=== PATIENT | female | born 1935 | race Caucasian/White ===

== ENCOUNTER 2016-09-18 16:43 | Inpatient (IN) | payer MEDICARE, MEDICAID ==
[2016-09-18 17:18] LABS: Hematocrit 43 % (35-47); Hemoglobin 13.8 g/dl (12.0-16.0); Mean Corpuscular HGB Conc 32 g/dl (31-36); Mean Corpuscular Hemoglobin 30 pg (27-31); Mean Corpuscular Volume 92 fL (80-97); Mean Platelet Volume 8 um3 (7.4-10.4); Red Blood Count 4.64 10^6/ul (4.0-5.4); Red Cell Distribution Width 16 % (10.5-15); White Blood Count 11.3 10^3/ul (3.5-10.8)
[2016-09-18 17:33] LABS: Albumin 3.6 g/dL (3.2-5.2); BUN/Creatinine Ratio 17.6 (8-20); C Reactive Protein 30.64 mg/L (< 5.00); Calcium 9.6 mg/dL (8.6-10.3); EGFR African American 62.5 (>60); EGFR Non-African American 48.6 (>60); Globulin 3.7 g/dL (2-4); Potassium 4.1 mmol/L (3.5-5.0); Total Bilirubin 0.5 mg/dL (0.2-1.0); Total Protein 7.3 g/dL (6.4-8.9)
[2016-09-18 17:34] LABS: Troponin I 0.04 ng/mL (<0.04)
--- NOTE | 2016-09-18 18:03 | RAD ---
INDICATION: Trauma. COMPARISON: Comparison is made with a prior CT angiogram of the abdominal aorta and lower extremities from June 10, 2016. TECHNIQUE: Contiguous axial sections were obtained beginning above the T12 vertebra and continuing through the L5-S1 disc space. Images were reconstructed in the sagittal and coronal planes. FINDINGS: There is a mild lumbar scoliosis convex toward the right side. The vertebra are otherwise in normal alignment. No fracture is seen. At the L1-L2 level there is posterior endplate spurring associated with a mild broad-based disc bulge. No significant spinal canal narrowing is seen. Neural foramen appear patent on both sides. The L2-L3 level there is posterior endplate spurring associated with a mild broad-based disc bulge which causes moderate spinal canal narrowing. There are moderate hypertrophic changes within the facet joints and mild bilateral neural foraminal narrowing. At the L3-L4 level there is a moderate broad-based disc bulge associated with endplate spurring and moderate hypertrophic changes within the facet joints. This causes moderate to severe spinal canal narrowing and moderate bilateral neural foraminal narrowing. At the L4-L5 level there is posterior endplate spurring associated with a mild broad-based disc bulge and moderate to severe hypertrophic changes within the facet joints which causes moderate spinal canal narrowing. There is mild bilateral neural foraminal narrowing. At the L5-S1 level there is posterior endplate spurring and moderate hypertrophic changes within the facet joints. There is mild spinal canal narrowing and moderate bilateral neural foraminal narrowing. The patient is status post placement of an endovascular aortobiiliac stent graft. The aneurysm sac is partially visualized on this study and measures 7.3 cm in maximum transverse dimension which is unchanged from the prior study. Note is also made of a dilated common bile duct measuring up to 2.5 cm in transverse dimension which appears increased from the prior study. The patient is status post cholecystectomy. IMPRESSION: 1. NO EVIDENCE FOR FRACTURE. 2. DIFFUSE DEGENERATIVE DISC DISEASE AND FACET OSTEOARTHRITIS AT GIVING RISE TO MODERATE SPINAL CANAL NARROWING AT THE L2-L3 LEVEL AND MODERATE TO SEVERE SPINAL CANAL NARROWING AT THE L3-L4 LEVEL, MODERATE SPINAL CANAL NARROWING AT THE L4-L5 LEVEL AND MILD SPINAL CANAL NARROWING AT THE L5-S1 LEVEL. THERE IS NEURAL FORAMINAL NARROWING PRESENT AT MULTIPLE LEVELS DESCRIBED. 3. STATUS POST STATUS POST ENDOVASCULAR AORTOBIILIAC STENT GRAFT. THE ANEURYSM SAC MEASURES 7.3 CM IN TRANSVERSE DIMENSION AND IS UNCHANGED FROM THE PRIOR STUDY. 4. STATUS POST CHOLECYSTECTOMY, DILATATION OF THE COMMON BILE DUCT, INCREASED IN SIZE FROM THE PRIOR STUDY. CONSIDER A RIGHT UPPER QUADRANT ULTRASOUND FOR FURTHER EVALUATION.
--- NOTE | 2016-09-18 18:28 | RAD ---
INDICATION: Right hip injury. COMPARISON: There are no prior studies available for comparison. TECHNIQUE: An AP view of the pelvis and frontal and lateral views of the right hip were obtained. FINDINGS: The bones appear osteopenic and in normal alignment. No fracture is seen. There is moderate osteoarthritic change within both hips. Note is made of an endovascular aorto-biiliac stent graft. IMPRESSION: NO EVIDENCE FOR FRACTURE, IF THE PATIENT'S SYMPTOMS PERSIST, RECOMMEND FOLLOW-UP IMAGING.
[2016-09-18] MEDS ORDERED: oxyCODONE/Acetamin 5/325 MG* TAB PO ONE (18:53)
[2016-09-18] MEDS ORDERED: Albuterol 2.5 MG/3 ML NEB.SOL* (0.083%) INH PRN (22:01)
[2016-09-18] MEDS ORDERED: Ondansetron INJ* 2 MG/ML VIAL IV PRN (22:01)
[2016-09-18] MEDS ORDERED: Senna TAB PO PRN (22:01)
[2016-09-18] MEDS ORDERED: Albuterol/Ipratropium NEB.SOL* Albuterol 2.5 MG/Ipratropium 0.5 MG 3 ML INH PRN (22:01)
[2016-09-18] MEDS ORDERED: Acetaminophen TAB* 325 MG PO PRN (22:01)
[2016-09-18] MEDS ORDERED: Al Hydrox/Mg Hydrox/Simet LIQ* 30 ML UDC PO PRN (22:01)
[2016-09-18] MEDS ORDERED: traMADol TAB* 50 MG PO PRN (22:04)
[2016-09-18] MEDS ORDERED: Gabapentin CAP(*) 300 MG PO PRN (22:05)
[2016-09-18] MEDS ORDERED: Dextrose 50% Syringe 50 ML* 25 GM/50 ML SYRINGE IV PUSH PRN (22:22)
[2016-09-18] MEDS ORDERED: Nicotine Inhaler* 10 MG AMP INH PRN (22:24)
[2016-09-18] MEDS ORDERED: Mouth Piece, Nicotine* 1 EACH CARTRIDGE INH PRN (22:24)
[2016-09-18 22:50] LABS: TSH (Thyroid Stimulating Horm) 2.64 mcIU/mL (0.34-5.60)
[2016-09-18] MEDS: Mometasone/Formoter 200/5 MDI INH SCH (23:06)
--- NOTE | 2016-09-18 23:08 | RAD ---
INDICATION: Trauma, right hip pain. COMPARISON: Comparison is made with a prior CT angiogram of the aorta and lower extremities from June 10, 2016. Correlation is also made with a prior x-ray study of the left hip obtained earlier today. TECHNIQUE: Contiguous axial sections were obtained through the pelvis without intravenous or oral contrast. Images were reconstructed in the coronal and sagittal planes. FINDINGS: The bones are osteopenic. No fracture is seen. There is moderate bilateral osteoarthritic change in the hips. There is an aortobiiliac endovascular stent graft present. The aortic aneurysm sac measures up to 7.0 cm in transverse dimension and is unchanged from the prior study as noted in the CT of the lumbar spine report.. The visualized portion of the small bowel and colon appear nondistended. No free intraperitoneal air or fluid is seen. IMPRESSION: NO EVIDENCE FOR FRACTURE.
--- NOTE | 2016-09-18 23:09 | ED ---
Tony Garcia Erika, scribed for Avinash Burt MD on 09/18/16 at 1827 . Lower Extremity - HPI Summary HPI Summary: Patient is an 81-year-old female presenting to the ED with a CC of right hip pain. Patient reports that she has had right hip pain for 5 days, and it has started to radiate into her lumbar back and down the right leg. Pain is aggravated by ambulation and movement. Today, patient had a mechanical fall, and pain has been worse since then - she currently rates pain an 8/10. Pt states she landed on her right side. She states she called family to help her up off the floor, as she is unable to get up by herself. Patient normally walks with a walker, and states she has fallen 3x this past month. Patient also reports chronic bilateral pedal edema for the past year. Hx osteoarthritis. She is followed by Dr. Partida. - History of Current Complaint Chief Complaint: EDHipPelvisInjury Stated Complaint: LEG SWELLING Time Seen by Provider: 09/18/16 16:50 Hx Obtained From: Patient Onset/Duration: Days - 5 Severity Currently: Moderate Pain Intensity: 8 Pain Scale Used: 0-10 Numeric Timing: Constant Location: Is Discrete @ - R hip Aggravating Factor(s): Movement - Allergies/Home Medications Allergies/Adverse Reactions: Allergies Allergy/AdvReac Type Severity Reaction Status Date / Time Sulfamethoxazole Allergy Rash Verified 09/18/16 16:50 w/Trimethoprim [From Bactrim] Home Medications: Home Medications Ascorbic Acid TAB* [Vitamin C TAB*] 500 mg PO DAILY 09/18/16 [History Confirmed 09/18/16] Cholecalciferol TAB* [Vitamin D TAB*] 1,000 unit PO DAILY 09/18/16 [History Confirmed 09/18/16] Folic Acid TAB* [Folvite TAB*] 1 mg PO DAILY 09/18/16 [History Confirmed ] Gabapentin CAP(*) [Neurontin 300 CAP(*)] 300 mg PO TID PRN 09/18/16 [History Confirmed 09/18/16] Levothyroxine TAB (NF) [Synthroid TAB (NF)] 175 mcg PO DAILY 09/18/16 [History Confirmed 09/18/16] Losartan TAB* [Cozaar TAB*] 50 mg PO DAILY 09/18/16 [History Confirmed 09/18/16] Magnesium Oxide TAB* [MagOx 400 TAB*] 400 mg PO TID 09/18/16 [History Confirmed 09/18/16] Metoprolol Tartrate TAB* [Lopressor TAB*] 50 mg PO BID 09/18/16 [History Confirmed 09/18/16] Multivitamins/Minerals TAB* [Theragran/minerals TAB*] 1 tab PO DAILY 09/18/16 [ History Confirmed 09/18/16] Omeprazole CAP* [Prilosec CAP* 20 MG] 20 mg PO DAILY 09/18/16 [History Confirmed 09/18/16] Pyridoxine TAB* [Vitamin B6 TAB*] 25 mg PO DAILY 09/18/16 [History Confirmed 08/02] Simvastatin TAB(NF) [Zocor(NF)] 20 mg PO DAILY 09/18/16 [History Confirmed 09/18] PMH/Surg Hx/FS Hx/Imm Hx Endocrine/Hematology History: Reports: Hx Diabetes, Hx Thyroid Disease Denies: Hx Blood Transfusions, Hx Bone Marrow Disease Cardiovascular History: Reports: Hx Aneurysm - AAA, Hx Hypercholesterolemia, Hx Hypertension, Other Cardiovascular Problems/Disorders - AAA Denies: Hx Pacemaker/ICD Comment Only: Hx Congestive Heart Failure - + edema le, smoker + wheezes, denies hx CHF, no sob Respiratory History: Reports: Hx Asthma, Hx Chronic Obstructive Pulmonary Disease (COPD), Hx Pneumonia GI History: Reports: Hx Gastroesophageal Reflux Disease, Hx Obstructive Bowel, Other GI Disorders - gangrenous ischemic colitis, colon resection,diarrhea since 11/2012 History: Reports: Hx Renal Disease - abnormal gfr Musculoskeletal History: Reports: Hx Gout, Hx Osteoporosis, Other Musculoskeletal History - arthritis ,brace left leg, club foot,carpal tunnel, neuropathy r/t diabetes Sensory History: Reports: Hx Contacts or Glasses Denies: Hx Cataracts, Hx Eye Injury, Hx Eye Prosthesis, Hx Glaucoma, Hx Legally Blind, Hx Macular Degeneration, Hx Vision Problem, Hx Deafness, Hx Hearing Aid, Hx Hearing Problem, Other Sensory Impairments Opthamlomology History: Reports: Hx Contacts or Glasses Denies: Hx Cataracts, Hx Eye Injury, Hx Eye Prosthesis, Hx Glaucoma, Hx Legally Blind, Hx Macular Degeneration, Hx Vision Problem, Other Sensory Impairments Psychiatric History: Denies: Hx Panic Disorder - Surgical History Surgery Procedure, Year, and Place: hysterectomy, cathy, appendectomy , tonsilectomy,left breast benign,hiatal hernia, bowel resection,club foot left, aaa repair stent-2 ENDURANT-3 ENDURANT II-[place] FOR UP TO 720G/CM. 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 Denies: Hx Clostridium Difficile, Hx Hepatitis, Hx Human Immunodeficiency Virus (HIV), Hx of Known/Suspected MRSA, Hx Shingles, Hx Tuberculosis, Hx Known/ Suspected VRSA, History Other Infectious Disease, Traveled Outside the [place] in Last 30 Days - Family History Known Family History: Positive: Cardiac Disease, Diabetes - Social History Occupation: Retired Alcohol Use: None Hx Substance Use: No Substance Use Type: Reports: None Hx Tobacco Use: No Smoking Status (MU): Never Smoked Tobacco Review of Systems Negative: Fever Musculoskeletal: Other - R hip pain, radiating into back and RLE Positive: Edema - bilateral pedal edema - chronic All Other Systems Reviewed And Are Negative: Yes Physical Exam Triage Information Reviewed: Yes Vital Signs On Initial Exam: Initial Vitals Temp Pulse Resp BP Pulse Ox 98.1 F 63 25 111/53 97 09/18/16 16:45 09/18/16 16:45 09/18/16 16:45 09/18/16 16:45 09/18/16 16:45 Vital Signs Reviewed: Yes Appearance: Positive: Well-Appearing, No Pain Distress, Obese - Morbidly Skin: Positive: Warm, Skin Color Reflects Adequate Perfusion, Dry Head/Face: Positive: Normal Head/Face Inspection Eyes: Positive: Normal ENT: Positive: Normal ENT inspection Neck: Positive: Supple, Nontender Respiratory/Lung Sounds: Positive: Clear to Auscultation, Breath Sounds Present Cardiovascular: Positive: RRR Abdomen Description: Positive: Nontender, Soft Bowel Sounds: Positive: Present Musculoskeletal: Positive: Other - Tender in the right sciatic area Neurological: Positive: Normal Psychiatric: Positive: Affect/Mood Appropriate Diagnostics - Vital Signs Vital Signs Temp Pulse Resp BP Pulse Ox 09/18/16 16:48 98.1 F 65 19 111/53 94 09/18/16 16:45 98.1 F 63 25 111/53 97 - Laboratory Lab Results: Lab Results 09/18/16 09/18/16 Range/Units 16:55 16:55 WBC 11.3 H (3.5-10.8) 10^3/ul RBC 4.64 (4.0-5.4) 10^6/ul Hgb 13.8 (12.0-16.0) g/dl Hct 43 (35-47) % MCV 92 (80-97) fL MCH 30 (27-31) pg MCHC 32 (31-36) g/dl RDW 16 H (10.5-15) % Plt Count 205 (150-450) 10^3/ul MPV 8 (7.4-10.4) um3 Neut % (Auto) 80.3 (38-83) % Lymph % (Auto) 10.0 L (25-47) % Reeves % (Auto) 7.3 (1-9) % Eos % (Auto) 2.0 (0-6) % Baso % (Auto) 0.4 (0-2) % Absolute Neuts (auto) 9.1 H (1.5-7.7) 10^3/ul Absolute Lymphs (auto) 1.1 (1.0-4.8) 10^3/ul Absolute Monos (auto) 0.8 (0-0.8) 10^3/ul Absolute Eos (auto) 0.2 (0-0.6) 10^3/ul Absolute Basos (auto) 0 (0-0.2) 10^3/ul Absolute Nucleated RBC 0 10^3/ul Nucleated RBC % 0 Sodium 139 (133-145) mmol/L Potassium 4.1 (3.5-5.0) mmol/L Chloride 101 (101-111) mmol/L Carbon Dioxide 30 (22-32) mmol/L Anion Gap 8 (2-11) mmol/L BUN 19 (6-24) mg/dL Creatinine 1.08 H (0.51-0.95) mg/dL Est GFR ( Amer) 62.5 (>60) Est GFR (Non-Af Amer) 48.6 (>60) BUN/Creatinine Ratio 17.6 (8-20) Glucose 104 H (70-100) mg/dL Calcium 9.6 (8.6-10.3) mg/dL Total Bilirubin 0.50 (0.2-1.0) mg/dL AST 17 (13-39) U/L ALT 11 (7-52) U/L Alkaline Phosphatase 90 (34-104) U/L Troponin I 0.04 H* (<0.04) ng/mL C-Reactive Protein 30.64 H (< 5.00) mg/L Total Protein 7.3 (6.4-8.9) g/dL Albumin 3.6 (3.2-5.2) g/dL Globulin 3.7 (2-4) g/dL Albumin/Globulin Ratio 1.0 (1-3) TSH 2.64 (0.34-5.60) mcIU/mL Result Diagrams: 09/18/16 16:55 09/18/16 16:55 Lab Statement: Any lab studies that have been ordered have been reviewed, and results considered in the medical decision making process. - Radiology R Hip XR Radiology Interpretation Completed By: Radiologist - IMPRESSION: NO EVIDENCE FOR FRACTURE, IF THE PATIENT'S SYMPTOMS PERSIST, RECOMMEND FOLLOW-UP IMAGING. - CT L Spine CT CT Interpretation Completed By: Radiologist - IMPRESSION: 1. NO EVIDENCE FOR FRACTURE. 2. DIFFUSE DEGENERATIVE DISC DISEASE AND FACET OSTEOARTHRITIS AT GIVING RISE TO MODERATE SPINAL CANAL NARROWING AT THE L2-L3 LEVEL AND MODERATE TO SEVERE SPINAL CANAL NARROWING AT THE L3-L4 LEVEL, MODERATE SPINAL CANAL NARROWING AT THE L4-L5 LEVEL AND MILD SPINAL CANAL NARROWING AT THE L5-S1 LEVEL. THERE IS NEURAL FORAMINAL NARROWING PRESENT AT MULTIPLE LEVELS DESCRIBED. 3. STATUS POST STATUS POST ENDOVASCULAR AORTOBIILIAC STENT GRAFT. THE ANEURYSM SAC MEASURES 7.3 CM IN TRANSVERSE DIMENSION AND IS UNCHANGED FROM THE PRIOR STUDY. 4. STATUS POST CHOLECYSTECTOMY, DILATATION OF THE COMMON BILE DUCT, INCREASED IN SIZE FROM THE PRIOR STUDY. CONSIDER A RIGHT UPPER QUADRANT ULTRASOUND FOR FURTHER EVALUATION. - EKG 16:40 Cardiac Rate: NL - at 63 bpm EKG Rhythm: Sinus Rhythm EKG Interpretation: A lot of baseline artifact Re-Evaluation - Re-Evaluation First Eval Re-Evaluation Time: 21:04 Comment: Patient reports she will not be able to walk. Lower Extremity Course/Dx - Course Course Of Treatment: Marcy Bonilla has fallen several times in the last few days and hurt her back. She has a lot of DDD and is now unable to walk secondary to the pain. I have asked the hospitalists to evaluate her. - Diagnoses Provider Diagnoses: Sciatica of right side - Physician Notifications Discussed Care of Patient With: Dr. Vizcarra (hospitalist) at 21:09 - agrees to admit. Discharge - Discharge Plan Condition: Stable Disposition: ADMITTED TO [facility] documentation as recorded by the Tony feldman Erika accurately reflects the service I personally performed and the decisions made by me, Avinash Burt MD.
--- NOTE | 2016-09-19 00:02 | HP ---
HISTORY AND PHYSICAL: DATE OF ADMISSION: 09/18/16 TIME OF EVALUATION: 2199. PRIMARY CARE PHYSICIAN: Dr. Prince Partida. CHIEF COMPLAINT: Fall with right hip pain. HISTORY OF PRESENT ILLNESS: This is an 81-year-old female with a past medical history of peripheral vascular disease, diabetes and hypertension who presents to the emergency room after having a fall. The patient states for the past year , she has had issues with swollen legs with oozing and various ulcers. She had required antibiotic treatment in the past, but not oral antibiotics. She did have VNS come in seeing her in the past and has been wrapping it with gauze, but the swelling of her lower extremities has made it more difficult for her to ambulate. She states back in August, she had a syncopal episode where she fell and hit her head. She went to [facility], had head CT and was sent home. She normally ambulates with a walker. On this fall, she states she just felt weak, no loss of consciousness, no dizziness, no shortness of breath. No chest pain, but no mechanical fall that she tripped over. The patient states that she has been coughing a little bit more. She normally uses 4 inhalers, but no longer carries one of them in her purse and she only takes them as needed. On arrival here, she states that most of her pain is in her right hip and she has a right middle finger laceration. Otherwise, no nausea, vomiting, diarrhea. No abdominal pain. Remaining review of systems is negative. Also mentioned low back pain, but mostly at right hip. In the emergency room, the patient had labs , imaging and was given Percocet and was referred to the hospitalist service for further evaluation. PAST MEDICAL HISTORY: 1. History of AAA repair in 2011. 2. Asthma. 3. COPD. 4. Tobacco use. 5. Diabetes. 6. Peripheral vascular disease. 7. Hypothyroidism. 8. Hypertension. 9. GERD. 10. History of a bowel obstruction, status post hemicolectomy. 11. Chronic lymphedema. 12. Osteoarthritis. MEDICATIONS: The patient has a list that is not complete with no dosages. Per the staff, the pharmacy was called. However, I recommend calling in the morning as patient's inhalers are not included and herein she also states that she is a diabetic and there are no diabetic agents on here either. 1. Gabapentin 300 mg p.o. t.i.d. as needed. 2. Metoprolol 50 mg b.i.d. 3. Magnesium oxide 400 mg p.o. t.i.d. 4. Simvastatin 20 mg p.o. daily. 5. Folic acid 1 tab daily. 6. Losartan 50 mg a day. 7. Omeprazole 20 mg daily. 8. Multivitamin p.o. daily. 9. Synthroid 175 mcg p.o. daily. 10. Aspirin 81 mg daily. 11. Vitamin D 1000 units daily. 12. Pyridoxine/vitamin B6 25 mg daily. 13. Ascorbic acid/vitamin C 500 mg daily. ALLERGIES: BACTRIM develops a rash. FAMILY HISTORY: As mentioned, her son had a stroke and is in a half-way. SOCIAL HISTORY: The patient lives alone is a double wide trailer. She is still smoking, has a pack per day for the past 40 years. No alcohol use. She has 2 children. Her daughter, Alyson Rios, is her healthcare proxy. Her son is in a half-way from a significant stroke. She ambulates with a walker. She is independent of her ADLs. She is planning on moving in with her daughter, who lives in a trailer park home about 10 miles away. Code status is full code. REVIEW OF SYSTEMS: As mentioned in the HPI. PHYSICAL EXAMINATION GENERAL: No acute distress, resting on her left side. VITAL SIGNS: Temp 98, pulse rate 75, respiratory rate 16, oxygen saturation 96 % on room air, blood pressure 130/56. HEENT: Pupils equal and reactive, anicteric. Head: Normocephalic. Oropharynx : Mucous membranes are moist. No erythema or exudate. NECK: Supple. No lymphadenopathy. RESPIRATORY: Rhonchorous breath sounds with bilateral expiratory wheezing. No increased work of breathing. CARDIAC: Regular rate and rhythm. Soft systolic murmur heard throughout. ABDOMEN: Soft, nontender, nondistended. EXTREMITIES: +2 pretibial edema. No significant areas of ulcerations on my limited physical exam. The patient with right hip pain and limited range of motion of her right hip. NEUROLOGIC: Alert and oriented x3. No focal neurologic deficits. DIAGNOSTIC STUDIES/LABORATORY DATA: White count 11.3, hemoglobin 13.8, hematocrit 43, platelets 205. Sodium 139, potassium 4.1, chloride 101, bicarb 30, BUN 19, creatinine 1.08, glucose 104, troponin 0.04, CRP is 30. Radiographic Data: Lumbar spine CT, no evidence for fracture, diffuse degenerative disease with moderate spinal canal narrowing. Moderate to severe spinal canal narrowing in L3-L4, status post endovascular stent, status post cholecystectomy, dilatation of the common bile duct, increasing in size. Hip and pelvis x-ray, no evidence for fracture. ASSESSMENT AND PLAN: This is an 81-year-old female with a past medical history of peripheral vascular disease, osteoarthritis, and diabetes who presents to the emergency room after having a fall and now complaining of right hip pain. 1. Fall. Assessment: It is unclear of the etiology, does not seem to be a mechanical fall. A month ago, she had a syncopal episode resulting in a significant fall. She states she felt weak. It could be the progression of her chronic lymphedema of her lower extremities with deconditioning and limited ability to ambulate with the swelling of her legs. There is also noted to have moderate to severe spinal stenosis on her lumbar spine CT, which may be contributing to neurologic symptoms. She is still complaining of significant amount of right hip pain and inability to ambulate. Plan will be to admit her to telemetry, rule out any cardiac etiology as she did have a syncopal episode last month including trending her troponin and doing an echocardiogram. We will get PT involved. We will do a CT of her pelvis to rule out any underlying fracture and consider Neurosurgery evaluate this [id number] spinal stenosis contributing to her weakness and fall. 2. Chronic lymphedema. Assessment: The patient has progressively worsening lymphedema. I do not appreciate any secondary infection. Plan: We will place her on Srikanth wraps. She states she takes Lasix, this is not on her list. I will start on Lasix 40 in the morning to see if this will improve her lymphedema. 3. Chronic obstructive pulmonary disease/asthma. Assessment: The patient with significant amount of wheezing on exam. She states she has 4 inhalers that she uses as needed. It is unclear which ones they are. She denies any worsening shortness of breath. We will hold off on getting a chest x-ray right now, resume inhaler regimen and get a med rec to find out what inhaler she was taking if her symptoms do not improve. We will get a baseline chest x-ray as well. If symptoms do not improve, she may need prednisone. 4. Diabetes. Again, med recs needs to be obtained and see what she was taking. We will put her on a lispro sliding scale. 5. Gastroesophageal reflux disease. Continue omeprazole. 6. Hypertension. We will hold her Cozaar as we are giving her Lasix and her blood pressures are soft and continue her on metoprolol. 7. Hyperlipidemia. Hold her simvastatin, is not in formulary for now. 8. Hypothyroidism. We will check a TSH and continue her Synthroid at 175 mcg. 9. Chronic pain and neuropathy. Continue her gabapentin and Tylenol as needed. We will also start her on Percocet and Tramadol as well for her pain from her fall. 10. FEN. We will place her on a heart healthy diet. 11. DVT prophylaxis. She is high risk. We will place her on heparin subcu t.i.d. 12. Code status is full code. PATIENT TIME: Greater than 90 minutes doing the H and P; more than half time spent in direct patient contact. CC: Dr. Prince Partida* [id number]/CPS #: [id number] [facility] HOSPITALJayson
[2016-09-19] MEDS: oxyCODONE/Acetamin 5/325 MG* TAB PO PRN ×3 (00:31→20:30)
[2016-09-19] MEDS: Metoprolol Tartrate TAB* 50 mg PO SCH ×2 (00:34→09:42)
[2016-09-19 01:09] LABS: Urine Bacteria Absent (Absent); Urine Bilirubin Negative (Negative); Urine Glucose Negative (Negative); Urine Nitrite Negative (Negative)
[2016-09-19 05:03] LABS: Hematocrit 37 % (35-47); Hemoglobin 12.1 g/dl (12.0-16.0); Mean Corpuscular HGB Conc 33 g/dl (31-36); Mean Corpuscular Hemoglobin 30 pg (27-31); Mean Corpuscular Volume 92 fL (80-97); Mean Platelet Volume 8 um3 (7.4-10.4); Red Blood Count 4.03 10^6/ul (4.0-5.4); Red Cell Distribution Width 15 % (10.5-15); White Blood Count 9.1 10^3/ul (3.5-10.8)
[2016-09-19 05:21] LABS: BUN/Creatinine Ratio 20.5 (8-20); Calcium 8.9 mg/dL (8.6-10.3); EGFR African American 59.9 (>60); EGFR Non-African American 46.6 (>60); Potassium 4.1 mmol/L (3.5-5.0)
[2016-09-19 05:23] LABS: Troponin I 0.02 ng/mL (<0.04)
[2016-09-19] MEDS: Levothyroxine TAB* 100 MCG TAB PO SCH (05:35)
[2016-09-19] MEDS: Levothyroxine TAB* 75 MCG TAB PO SCH (05:36)
[2016-09-19] MEDS: Heparin VIAL(*) 5000 UNITS/ML VIAL (FIVE THOUSAND) SUBCUT SCH ×3 (05:37→20:31)
--- NOTE | 2016-09-19 07:33 | RAD ---
INDICATION: Shortness of breath and wheezing. COMPARISON: Comparison is made with a prior chest x-ray study from January 04, 2013. TECHNIQUE: A portable view of the chest was obtained. FINDINGS: Cardiac and mediastinal contours appear to be within normal limits. The lungs are underinflated. There is mild prominence of the interstitial markings which are unchanged. No focal infiltrate or pleural effusion is seen. IMPRESSION: NO EVIDENCE FOR ACUTE DISEASE.
[2016-09-19] MEDS: Insulin LISPRO* 1 UNITS UNIT SUBCUT SCH ×3 (07:42→18:12)
[2016-09-19] MEDS: Mometasone/Formoter 200/5 MDI INH SCH ×2 (08:10→21:53)
[2016-09-19] MEDS ORDERED: Furosemide TAB* 40 MG PO SCH (09:00)
[2016-09-19] MEDS: Multivitamins/Minerals TAB PO SCH (09:14)
[2016-09-19] MEDS: Magnesium Oxide TAB* 400 MG PO SCH ×3 (09:14→20:30)
[2016-09-19] MEDS: Omeprazole CAP* 20 MG PO SCH (09:14)
[2016-09-19] MEDS: Aspirin EC Low Dose* 81 MG TAB.EC PO SCH (09:16)
[2016-09-19] MEDS: Ascorbic Acid TAB* 500 MG PO SCH (09:16)
[2016-09-19] MEDS: Cholecalciferol TAB* 1000 UNITS PO SCH (09:16)
[2016-09-19] MEDS: Pyridoxine TAB* 50 MG PO SCH (09:16)
[2016-09-19] MEDS: Folic Acid TAB* 1 MG PO SCH (09:16)
[2016-09-19] MEDS: Docusate CAP* 100 MG PO PRN (09:16)
[2016-09-19] MEDS ORDERED: Morphine INJ* 2 MG/ML 1 ML SYRINGE IV PRN (11:01)
[2016-09-19] MEDS: Morphine INJ* 2 MG/ML 1 ML SYRINGE IV PRN ×3 (11:25→17:28)
--- NOTE | 2016-09-19 14:36 | PN ---
Subjective Date of Service: 09/19/16 Interval History: HOSPITALIST PROGRESS NOTE Patient seen and examined at bedside. She c/o right hip pain 12/26. Denies dizziness or lightheadedness. Family History: Unchanged from Admission Social History: Unchanged from Admission Past Medical History: Unchanged from Admission Objective Active Medications: Acetaminophen (Tylenol Tab*) 650 mg PO Q4H PRN PRN Reason: FEVER/PAIN Al Hydrox/Mg Hydrox/Simethicone (Maalox Plus*) 30 ml PO Q6H PRN PRN Reason: INDIGESTION Albuterol (Ventolin 2.5 Mg/3 Ml Neb.Lina*) 2.5 mg INH [id number] AWAKE PRN PRN Reason: sob/wheezing Albuterol/Ipratropium (Duoneb (Albuterol 2.5 Mg/Ipratropium 0.5 Mg)) 1 neb INH [id number] AWAKE PRN PRN Reason: sob/wheexing Ascorbic Acid (Vitamin C Tab*) 500 mg PO DAILY [facility] Last Admin: 09/19/16 09:16 Dose: 500 mg Aspirin (Aspirin Ec Low Dose*) 81 mg PO DAILY [facility] Last Admin: 09/19/16 09:16 Dose: 81 mg Cholecalciferol (Vitamin D Tab*) 1,000 units PO DAILY [facility] Last Admin: 09/19/16 09:16 Dose: 1,000 units Device (Nicotine Mouth Piece*) 1 each INH .USE WITH NICOTROL PRN PRN Reason: CRAVING Dextrose (D50w Syringe 50 Ml*) 12.5 gm IV PUSH .FOR FS < 60 - SS PRN PRN Reason: FS < 60 Docusate Sodium (Colace Cap*) 100 mg PO BID PRN PRN Reason: CONSTIPATION Last Admin: 09/19/16 09:16 Dose: 100 mg Folic Acid (Folvite Tab*) 1 mg PO DAILY [facility] Last Admin: 09/19/16 09:16 Dose: 1 mg Gabapentin (Neurontin Cap(*)) 300 mg PO TID PRN PRN Reason: PAIN Heparin Sodium (Porcine) (Heparin Vial(*)) 5,000 units SUBCUT Q8HR [facility] Last Admin: 09/19/16 13:10 Dose: 5,000 units Insulin Human Lispro (Humalog*) 0 units SUBCUT AC [facility] PRN Reason: Protocol Last Admin: 09/19/16 13:10 Dose: 3 unit Levothyroxine Sodium (Synthroid Tab*) 100 mcg PO 0600 [facility] Last Admin: 09/19/16 05:35 Dose: 100 mcg Levothyroxine Sodium (Synthroid Tab*) 75 mcg PO 0600 [facility] Last Admin: 09/19/16 05:36 Dose: 75 mcg Magnesium Oxide (Magox 400 Tab*) 400 mg PO TID [facility] Last Admin: 09/19/16 13:11 Dose: 400 mg Metoprolol Tartrate (Lopressor Tab*) 12.5 mg PO Q12HR [facility] Mometasone Furoate/Formoterol Fumar (Dulera 200/5 Mdi*) 2 puff INH BID [facility] Last Admin: 09/19/16 08:10 Dose: 2 puff Morphine Sulfate (Morphine Inj (Syringe)*) 2 mg IV Q2H PRN PRN Reason: PAIN Last Admin: 09/19/16 14:14 Dose: 2 mg Multivitamins/Minerals (Theragran/Minerals Tab*) 1 tab PO DAILY [facility] Last Admin: 09/19/16 09:14 Dose: 1 tab Nicotine (Nicotine Inhaler*) 10 mg INH Q2H PRN PRN Reason: CRAVING Omeprazole (Prilosec Cap*) 20 mg PO DAILY [facility] Last Admin: 09/19/16 09:14 Dose: 20 mg Ondansetron HCl (Zofran Inj*) 4 mg IV Q4H PRN PRN Reason: NAUSEA/VOMITING Oxycodone/Acetaminophen (Percocet 5/325 Tab*) 1 tab PO Q4H PRN PRN Reason: Pain Last Admin: 09/19/16 09:16 Dose: 1 tab Pyridoxine HCl (Vitamin B6 Tab*) 25 mg PO DAILY [facility] Last Admin: 09/19/16 09:16 Dose: 25 mg Senna (Senokot Tab*) 1 tab PO BID PRN PRN Reason: CONSTIPATION Tramadol HCl (Ultram*) 50 mg PO Q6H PRN PRN Reason: PAIN Last Admin: 09/19/16 04:10 Dose: 50 mg Vital Signs 09/19/16 09/19/16 09/19/16 11:25 11:49 12:25 Temperature 97.3 F Pulse Rate 65 Respiratory 18 16 20 Rate Blood Pressure 122/47 (mmHg) O2 Sat by Pulse 94 Oximetry 09/19/16 14:14 Temperature Pulse Rate Respiratory 16 Rate Blood Pressure (mmHg) O2 Sat by Pulse Oximetry Oxygen Devices in Use Now: None Appearance: Elderly obese lady lying in bed in NAD. Eyes: No Scleral Icterus Ears/Nose/Mouth/Throat: Mucous Membranes Moist Neck: Trachea Midline Respiratory: Symmetrical Chest Expansion and Respiratory Effort, Clear to Auscultation Cardiovascular: RRR - Normal S1 and S2 Abdominal: NL Sounds; No Tenderness; No Distention Neurological: Alert and Oriented x 3, NL Muscle Strength and Tone Lines/Tubes/Other Access: Clean, Dry and Intact Peripheral IV Nutrition: Taking PO's Result Diagrams: 09/19/16 04:27 09/19/16 04:27 Assess/Plan/Problems-Billing Assessment: Mrs. Bonilla is an 81yo F with PMH of AAA s/p repair, COPD, tobacco abuse, type 2 DM, PVD, hypothyroidism, HTN, GERD, DJD, who presented to ED after a fall with c/o right hip pain. - Patient Problems (1) Fall Comment: - Fall vs syncope. - Suspect her antihypertensives may be causing hypotension and syncope. Will d/ c Losartan and decrease Metoprolol. - Follow echocardiogram. - No significant arrhythmias on Tele so far. - PT/OT consults. - Fall precautions. (2) Hip pain Comment: - CT pelvis was negative for fracture. - PT as tolerated. - Continue pain management. (3) COPD (chronic obstructive pulmonary disease) Comment: - Appears to be stable at this time. - Continue bronchodilators. (4) Diabetes Comment: - Controlled. - Continue Lispro SS. (5) GERD (gastroesophageal reflux disease) Comment: - Continue Omeprazole. (6) Hypothyroid Comment: - TSH 2.64 - continue Levothyroxine. (7) DVT prophylaxis Comment: - SQ heparin. (8) Full code status
--- NOTE | 2016-09-19 18:02 | ECHO ---
Patient: RENATA ALBERT [facility] Rec#: [id number] : 1935 Date: 09/19/2016 Age: 81y Height: 172.7 cm / 68.0 in Weight: 104.8 kg / 231.0 lbs Sex: F BSA: 2.17 Room#: 437 Admit Date#: 09/18/2016 Type: Inpatient Referring: Amy Vizcarra Reading: Lex Moore MD Order Analyst: Meghna Mcnally RN RDCS CC: Prince Partida MD Transthoracic Echocardiogram Indication: Syncope BP: 102/35 HR: 70 Rhythm: NSR Findings History: HTN, DM, PVD, AAA repair, hypothyroidism, COPD, smoker, obesity, lower extremity edema Technical Comments: The study quality is fair. The study is technically limited due to patient body habitus. The study is technically limited due to the patient's history of COPD. The study is technically limited due to the patient's smoking history. Completed at 1025. Left Ventricle: The left ventricular chamber size is normal. There is increased basal septal hypertrophy noted without evidence of an increased gradient across the left ventricular outflow tract. c/w sigmoid septum. Global left ventricular wall motion and contractility are within normal limits. There is normal left ventricular systolic function. The estimated ejection fraction is 60-65%. There is an E to A reversal in the mitral valve flow pattern suggestive of diastolic dysfunction. Left Atrium: The left atrial chamber size is normal. Right Ventricle: The right ventricle wall thickness is mildly increased.8 mm. The right ventricle is slightly dilated. The right ventricular global systolic function is mildly reduced. Right Atrium: The right atrial cavity size is normal. Aortic Valve: The aortic valve is trileaflet. The aortic valve leaflets are mildly thickened. There is aortic annular calcification. There is no evidence of aortic regurgitation. There is no evidence of aortic stenosis. Mitral Valve: The mitral valve leaflets are mildly thickened. There is mild mitral regurgitation. There is no evidence of mitral stenosis. Tricuspid Valve: The tricuspid valve leaflets are normal. There is moderate tricuspid regurgitation. There is evidence of moderate pulmonary hypertension. Pulmonic Valve: The pulmonic valve appears normal. There is a trace pulmonic regurgitation. There is no pulmonic stenosis. Pericardium: There is no significant pericardial effusion. A pericardial fat pad is visualized. Aorta: There is mild dilatation of the ascending aorta. The aortic arch is not well visualized. The aortic root is normal in size. Pulmonary Artery: The main pulmonary artery appears normal. Venous: The venous system is not well visualized. The inferior vena cava is not visualized. Summary: There was not any prior study for comparison. Conclusions The study is technically limited due to the patient's history of COPD. The estimated ejection fraction is 60-65%. There is an E to A reversal in the mitral valve flow pattern suggestive of diastolic dysfunction. The right ventricle wall thickness is mildly increased. The right ventricle is slightly dilated. The right ventricular global systolic function is mildly reduced. The aortic valve leaflets are mildly thickened. There is mild mitral regurgitation. There is moderate tricuspid regurgitation. There is evidence of moderate pulmonary hypertension. Measurements Name Value Normal Range RVIDd (AP) 2D 2.8 cm (0.9 - 2.6) RVDdMajor (2D) 3.5 cm (2.2 - 4.4) RVAW (2D) 0.7 cm (0.2 - 0.5) RAd ISD 4CH 4.8 cm (3.4 - 4.9) RA (A4C)W 3.4 cm (2.9 - 4.6) IVSd (2D) 1.6 cm (0.6 - 1) LVPWd (2D) 0.9 cm (0.6 - 1) LVIDd (2D) 4.5 cm (3.6 - 5.4) LVIDs (2D) 2.9 cm - LV FS (2D) 35 % (25 - 45) Aortic Annulus 2 cm (1.4 - 2.6) Ao root diameter (2D) 2.8 cm (2.1 - 3.5) Ascending Ao 3.5 cm (2.1 - 3.4) LA dimension (AP) 2D 3.4 cm (2.3 - 3.8) LAd ISD 4CH 4.9 cm (2.9 - 5.3) LA ISD 4CH W 4.2 cm (2.5 - 4.5) Name Value Normal Range LA ESV SP 4CH (A/L) 54 ml - LA ESV SP 2CH (A/L) 47 ml - LA ESV BP (A/L) 51 ml - LA ESV BP (A/L) index 24 ml/m2 - LA ESV SP 4CH (MOD) 50 ml - LA ESV SP 2CH (MOD) 44 ml - Name Value Normal Range MV E-wave Vmax 0.74 m/sec - MV deceleration time 247 msec - MV A-wave Vmax 1.1 m/sec - MV E:A ratio 0.7 ratio - LV septal e' Vmax 0.06 m/sec - LV lateral e' Vmax 0.07 m/sec - LV E:e' septal ratio 12.3 ratio - LV E:e' lateral ratio 10.6 ratio - Name Value Normal Range AV Vmax 1.6 m/sec - AV VTI 35.1 cm - AV peak gradient 10 mmHg - AV mean gradient 6 mmHg - LVOT diameter 2 cm - LVOT Vmax 1.2 m/sec - LVOT VTI 25 cm - LVOT peak gradient 6 mmHg - LVOT mean gradient 3 mmHg - CESILIA (continuity Vmax) 2.4 cm2 - CESILIA (continuity VTI) 2.2 cm2 - Name Value Normal Range TR Vmax 3.6 m/sec - TR peak gradient 52 mmHg - RAP 8 mmHg - RVSP 60 mmHg - Name Value Normal Range PV Vmax 0.97 m/sec -
[2016-09-19] MEDS: Metoprolol Tartrate TAB* 25 MG PO SCH (20:31)
[2016-09-20] MEDS: Morphine INJ* 2 MG/ML 1 ML SYRINGE IV PRN ×4 (05:07→20:51)
[2016-09-20] MEDS: Levothyroxine TAB* 75 MCG TAB PO SCH (05:11)
[2016-09-20] MEDS: Heparin VIAL(*) 5000 UNITS/ML VIAL (FIVE THOUSAND) SUBCUT SCH ×3 (05:11→22:22)
[2016-09-20] MEDS: Levothyroxine TAB* 100 MCG TAB PO SCH (05:11)
[2016-09-20] MEDS: Mometasone/Formoter 200/5 MDI INH SCH ×2 (08:55→19:35)
[2016-09-20] MEDS: Magnesium Oxide TAB* 400 MG PO SCH ×3 (09:03→22:20)
[2016-09-20] MEDS: Pyridoxine TAB* 50 MG PO SCH (09:03)
[2016-09-20] MEDS: Omeprazole CAP* 20 MG PO SCH (09:03)
[2016-09-20] MEDS: Cholecalciferol TAB* 1000 UNITS PO SCH (09:03)
[2016-09-20] MEDS: Metoprolol Tartrate TAB* 25 MG PO SCH ×2 (09:03→22:20)
[2016-09-20] MEDS: Folic Acid TAB* 1 MG PO SCH (09:04)
[2016-09-20] MEDS: Aspirin EC Low Dose* 81 MG TAB.EC PO SCH (09:04)
[2016-09-20] MEDS: Ascorbic Acid TAB* 500 MG PO SCH (09:04)
[2016-09-20] MEDS: Insulin LISPRO* 1 UNITS UNIT SUBCUT SCH ×3 (09:53→17:38)
[2016-09-20] MEDS: Multivitamins/Minerals TAB PO SCH (09:53)
[2016-09-20] MEDS ORDERED: HYDROmorphone* 1 MG/ML 1 ML SYR IV SLOW PU ONE ×2 (09:58→14:43)
[2016-09-20] MEDS ORDERED: oxyCODONE/Acetamin 5/325 MG* TAB PO PRN ×2 (11:09→11:12)
[2016-09-20] MEDS: Morphine TAB Extended Release (*) 15 MG TAB.ER PO SCH (12:03)
[2016-09-20] MEDS ORDERED: HYDROmorphone* 1 MG/ML 1 ML SYR ONE (14:46)
--- NOTE | 2016-09-20 15:52 | RAD ---
INDICATION: Trauma, right hip pain. COMPARISON: Comparison is made with a prior CT of the pelvis from September 18, 2016. TECHNIQUE: Axial coronal T1 and T2-weighted images of the pelvis were obtained. The exam is slightly limited due to motion artifact. FINDINGS: There is a small nonspecific area of increased signal intensity in the superior left acetabulum. The bones are otherwise normal in signal intensity without evidence for fracture. There is moderate bilateral osteoarthritic change in the hips. There is abnormal increased signal intensity in the right iliopsoas muscle beginning at the level of the top of the iliac crest and extending to the distal muscular tendinous junction. There is a complete tear of the distal right iliopsoas tendon which appears avulsed and retracted away from the lesser trochanter. There is also mild edema in the lateral aspect of the left gluteus blake muscle. There is edema extending into the proximal portion of the right thigh. No free intraperitoneal fluid is seen. IMPRESSION: 1. NO EVIDENCE FOR FRACTURE. 2. HIGH-GRADE TEAR OF THE RIGHT ILIOPSOAS MUSCLE AND COMPLETE TEAR OF THE DISTAL RIGHT ILIOPSOAS TENDON WHICH IS RETRACTED FROM THE LESSER TUBEROSITY.
--- NOTE | 2016-09-20 15:55 | PN ---
Subjective Date of Service: 09/20/16 Interval History: HOSPITALIST PROGRESS NOTE Patient seen and examined at bedside. She c/o severe right hip pain radiating to her right knee. Was unable to get up from bed today. Family History: Unchanged from Admission Social History: Unchanged from Admission Past Medical History: Unchanged from Admission Objective Active Medications: Acetaminophen (Tylenol Tab*) 650 mg PO Q4H PRN PRN Reason: FEVER/PAIN Al Hydrox/Mg Hydrox/Simethicone (Maalox Plus*) 30 ml PO Q6H PRN PRN Reason: INDIGESTION Albuterol (Ventolin 2.5 Mg/3 Ml Neb.Lina*) 2.5 mg INH [id number] AWAKE PRN PRN Reason: sob/wheezing Albuterol/Ipratropium (Duoneb (Albuterol 2.5 Mg/Ipratropium 0.5 Mg)) 1 neb INH [id number] AWAKE PRN PRN Reason: sob/wheexing Ascorbic Acid (Vitamin C Tab*) 500 mg PO DAILY [facility] Last Admin: 09/20/16 09:04 Dose: 500 mg Aspirin (Aspirin Ec Low Dose*) 81 mg PO DAILY [facility] Last Admin: 09/20/16 09:04 Dose: 81 mg Cholecalciferol (Vitamin D Tab*) 1,000 units PO DAILY [facility] Last Admin: 09/20/16 09:03 Dose: 1,000 units Device (Nicotine Mouth Piece*) 1 each INH .USE WITH NICOTROL PRN PRN Reason: CRAVING Dextrose (D50w Syringe 50 Ml*) 12.5 gm IV PUSH .FOR FS < 60 - SS PRN PRN Reason: FS < 60 Docusate Sodium (Colace Cap*) 100 mg PO BID PRN PRN Reason: CONSTIPATION Last Admin: 09/19/16 09:16 Dose: 100 mg Folic Acid (Folvite Tab*) 1 mg PO DAILY [facility] Last Admin: 09/20/16 09:04 Dose: 1 mg Gabapentin (Neurontin Cap(*)) 300 mg PO TID PRN PRN Reason: PAIN Heparin Sodium (Porcine) (Heparin Vial(*)) 5,000 units SUBCUT Q8HR [facility] Last Admin: 09/20/16 13:18 Dose: 5,000 units Insulin Human Lispro (Humalog*) 0 units SUBCUT AC [facility] PRN Reason: Protocol Last Admin: 09/20/16 13:18 Dose: 1 unit Levothyroxine Sodium (Synthroid Tab*) 100 mcg PO 0600 [facility] Last Admin: 09/20/16 05:11 Dose: 100 mcg Levothyroxine Sodium (Synthroid Tab*) 75 mcg PO 0600 [facility] Last Admin: 09/20/16 05:11 Dose: 75 mcg Magnesium Oxide (Magox 400 Tab*) 400 mg PO TID [facility] Last Admin: 09/20/16 13:19 Dose: 400 mg Metoprolol Tartrate (Lopressor Tab*) 12.5 mg PO Q12HR [facility] Last Admin: 09/20/16 09:03 Dose: 12.5 mg Mometasone Furoate/Formoterol Fumar (Dulera 200/5 Mdi*) 2 puff INH BID [facility] Last Admin: 09/20/16 08:55 Dose: 2 puff Morphine Sulfate (Morphine Inj (Syringe)*) 2 mg IV Q2H PRN PRN Reason: PAIN Last Admin: 09/20/16 14:00 Dose: 2 mg Morphine Sulfate (Ms Contin(*)) 15 mg PO Q12H [facility] Last Admin: 09/20/16 12:03 Dose: 15 mg Multivitamins/Minerals (Theragran/Minerals Tab*) 1 tab PO DAILY [facility] Last Admin: 09/20/16 09:53 Dose: 1 tab Nicotine (Nicotine Inhaler*) 10 mg INH Q2H PRN PRN Reason: CRAVING Omeprazole (Prilosec Cap*) 20 mg PO DAILY [facility] Last Admin: 09/20/16 09:03 Dose: 20 mg Ondansetron HCl (Zofran Inj*) 4 mg IV Q4H PRN PRN Reason: NAUSEA/VOMITING Oxycodone/Acetaminophen (Percocet 5/325 Tab*) 2 tab PO Q4H PRN PRN Reason: Pain 6-10 Oxycodone/Acetaminophen (Percocet 5/325 Tab*) 1 tab PO Q4H PRN PRN Reason: Pain 1-5 Pyridoxine HCl (Vitamin B6 Tab*) 25 mg PO DAILY [facility] Last Admin: 09/20/16 09:03 Dose: 25 mg Senna (Senokot Tab*) 1 tab PO BID PRN PRN Reason: CONSTIPATION Vital Signs 09/20/16 09/20/16 09/20/16 10:16 11:39 12:03 Temperature 98.2 F Pulse Rate 79 Respiratory 25 16 18 Rate Blood Pressure 126/60 (mmHg) O2 Sat by Pulse 96 Oximetry Oxygen Devices in Use Now: None Appearance: Elderly obese lady lying in bed in NAD. Eyes: No Scleral Icterus Ears/Nose/Mouth/Throat: Mucous Membranes Moist Neck: Trachea Midline Respiratory: Symmetrical Chest Expansion and Respiratory Effort, Clear to Auscultation Cardiovascular: RRR - Normal S1 and S2 Abdominal: NL Sounds; No Tenderness; No Distention Neurological: Alert and Oriented x 3, NL Muscle Strength and Tone Lines/Tubes/Other Access: Clean, Dry and Intact Peripheral IV Nutrition: Taking PO's Result Diagrams: 09/19/16 04:27 09/19/16 04:27 Assess/Plan/Problems-Billing Assessment: Mrs. Bonilla is an 81yo F with PMH of AAA s/p repair, COPD, tobacco abuse, type 2 DM, PVD, hypothyroidism, HTN, GERD, DJD, who presented to ED after a fall with c/o right hip pain. - Patient Problems (1) Fall Comment: - Fall vs syncope. - Suspect her antihypertensives may be causing hypotension and syncope. Will d/ c Losartan and decrease Metoprolol. - Echocardiogram reviewed. - No significant arrhythmias on Tele - will d/c. - PT/OT consults. - Fall precautions. (2) Hip pain Comment: - CT pelvis was negative for fracture. - Pain is still severe. - PT as tolerated. - Ortho consult requested - recommended MRI pelvis to r/o fracture. - Will add MS contin, continue oxycodone and PRN Morphine. (3) COPD (chronic obstructive pulmonary disease) Comment: - Appears to be stable at this time. - Continue bronchodilators. (4) Diabetes Comment: - Controlled. - Continue Lispro SS. (5) GERD (gastroesophageal reflux disease) Comment: - Continue Omeprazole. (6) Hypothyroid Comment: - TSH 2.64 - continue Levothyroxine. (7) DVT prophylaxis Comment: - SQ heparin. (8) Full code status
--- NOTE | 2016-09-20 21:47 | CONS ---
ORTHOPEDIC CONSULT: DATE OF CONSULT: 09/20/16 CHIEF COMPLAINT: Right hip. HISTORY OF PRESENT ILLNESS: Ms. Bonilla is an 81-year-old female who was admitted on the evening of September 18 after having a fall at home. She has had troubles going over the past year with swelling of both of her legs and has had initially some stockings which had seemed to help, but more recently, the visiting nurse service had set her up with compression tubigauze sleeves. She still though has been having troubles with that swelling and it has been more difficult for her to walk. She had a fall on the day of admission and when we were talking about the hip, she reports that for about 5 days prior to the fall , her right hip had been giving her some pain and troubles. It was towards the front. With the fall, there was concern for a hip fracture, so she initially had x-rays and then a CAT scan and then this morning, I was consulted and the hospitalist service was considering an MRI and I did agree with that plan, as her x-rays and CAT scan did look relatively good. MRI has shown a tear of her iliopsoas tendon. PAST MEDICAL HISTORY: Asthma/COPD, diabetes, peripheral vascular disease, hypothyroidism, hypertension, GERD, chronic lymphedema. PAST SURGICAL HISTORY: She has had various surgeries including an abdominal aortic aneurysm repair in [place] after being diagnosed here in 2011, status post hemicolectomy, and cholecystectomy. PHYSICAL EXAM: General: Mature female, propped up on the bed, protecting her right hip. Bilateral lower extremities: She has impressive edema of both of the legs including the feet and it could be seen how she had troubles walking. She has very specific pitting edema and while the Srikanth wrap is bunched up some, she is still swollen above the Srikanth wraps to a very significant degree. Motion of the right hip does create her pain. DIAGNOSTIC STUDIES: X-rays, CAT scan, and MRI done are available for review. She had some [id number] arthritic changes of the right hip, but I agree with the radiologist that on the MRI that there is a tear to the iliopsoas tendon. ASSESSMENT: Right hip iliopsoas tendon tear. PLAN: I discussed with Ms. Bonilla that this is not something that we routinely fix. This is also something which is not common at all. It does, however, occur in older women and can occur spontaneously. Considering her debilitated nature, lymphedema and issues with wound healing, I would not be enthusiastic to push for a repair of her iliopsoas. With conservative treatment , she can still has a good outcome where she can walk, flex the hip, and do things, but currently, it is her lymphedema which was giving her issues prior to this injury. Considering the inflammation seen on MRI, I would like to try a low-dose antiinflammatory such as Celebrex 100 mg daily, but considering her peripheral edema and hypertension, I am unsure if something like that would be possible and leave that to the hospitalist service to decide. Getting some simple mechanical improvement, such as using one of the Jobst stockings, is something which should be easy to do and should help to squeeze some of that swelling, so that hopefully the feet will not bother as much and she can be more mobile. Continuing to coordinate with Physical Therapy so that she is up and about also is something which should still help and prevent further debilitation. [id number]/CPS #: [id number] MTDD
[2016-09-21] MEDS: Morphine TAB Extended Release (*) 15 MG TAB.ER PO SCH (00:22)
[2016-09-21] MEDS: Morphine INJ* 2 MG/ML 1 ML SYRINGE IV PRN ×5 (02:47→18:50)
[2016-09-21] MEDS: Levothyroxine TAB* 100 MCG TAB PO SCH (05:40)
[2016-09-21] MEDS: Levothyroxine TAB* 75 MCG TAB PO SCH (05:40)
[2016-09-21] MEDS: Heparin VIAL(*) 5000 UNITS/ML VIAL (FIVE THOUSAND) SUBCUT SCH ×3 (05:40→21:28)
[2016-09-21] MEDS: Docusate CAP* 100 MG PO PRN (05:46)
[2016-09-21] MEDS: Mometasone/Formoter 200/5 MDI INH SCH ×2 (07:49→20:24)
[2016-09-21] MEDS: Folic Acid TAB* 1 MG PO SCH (08:13)
[2016-09-21] MEDS: Cholecalciferol TAB* 1000 UNITS PO SCH (08:13)
[2016-09-21] MEDS: Omeprazole CAP* 20 MG PO SCH (08:13)
[2016-09-21] MEDS: Multivitamins/Minerals TAB PO SCH (08:13)
[2016-09-21] MEDS: Magnesium Oxide TAB* 400 MG PO SCH ×3 (08:13→21:28)
[2016-09-21] MEDS: Aspirin EC Low Dose* 81 MG TAB.EC PO SCH (08:13)
[2016-09-21] MEDS: Ascorbic Acid TAB* 500 MG PO SCH (08:14)
[2016-09-21] MEDS: Metoprolol Tartrate TAB* 25 MG PO SCH ×2 (08:14→21:28)
[2016-09-21] MEDS: Insulin LISPRO* 1 UNITS UNIT SUBCUT SCH ×3 (09:35→18:50)
[2016-09-21] MEDS: Polyethylene Glycol 3350* 17 GM PACKET PO SCH (09:35)
[2016-09-21] MEDS ORDERED: Morphine TAB Extended Release (*) 15 MG TAB.ER PO ONE (10:57)
[2016-09-21] MEDS: Furosemide TAB* 40 MG PO SCH (11:19)
[2016-09-21] MEDS: Pyridoxine TAB* 50 MG PO SCH (11:19)
--- NOTE | 2016-09-21 14:56 | PN ---
Subjective Date of Service: 09/21/16 Interval History: HOSPITALIST PROGRESS NOTE Patient seen and examined at bedside. Right hip pain is less intense than yesterday, but still severe. Did not try to get out of bed and scared to do so. Family History: Unchanged from Admission Social History: Unchanged from Admission Past Medical History: Unchanged from Admission Objective Active Medications: Acetaminophen (Tylenol Tab*) 650 mg PO Q4H PRN PRN Reason: FEVER/PAIN Al Hydrox/Mg Hydrox/Simethicone (Maalox Plus*) 30 ml PO Q6H PRN PRN Reason: INDIGESTION Albuterol (Ventolin 2.5 Mg/3 Ml Neb.Lina*) 2.5 mg INH [id number] AWAKE PRN PRN Reason: sob/wheezing Albuterol/Ipratropium (Duoneb (Albuterol 2.5 Mg/Ipratropium 0.5 Mg)) 1 neb INH [id number] AWAKE PRN PRN Reason: sob/wheexing Ascorbic Acid (Vitamin C Tab*) 500 mg PO DAILY [facility] Last Admin: 09/21/16 08:14 Dose: 500 mg Aspirin (Aspirin Ec Low Dose*) 81 mg PO DAILY [facility] Last Admin: 09/21/16 08:13 Dose: 81 mg Cholecalciferol (Vitamin D Tab*) 1,000 units PO DAILY [facility] Last Admin: 09/21/16 08:13 Dose: 1,000 units Device (Nicotine Mouth Piece*) 1 each INH .USE WITH NICOTROL PRN PRN Reason: CRAVING Dextrose (D50w Syringe 50 Ml*) 12.5 gm IV PUSH .FOR FS < 60 - SS PRN PRN Reason: FS < 60 Docusate Sodium (Colace Cap*) 100 mg PO BID PRN PRN Reason: CONSTIPATION Last Admin: 09/21/16 05:46 Dose: 100 mg Folic Acid (Folvite Tab*) 1 mg PO DAILY [facility] Last Admin: 09/21/16 08:13 Dose: 1 mg Furosemide (Lasix Tab*) 40 mg PO DAILY [facility] Last Admin: 09/21/16 11:19 Dose: 40 mg Gabapentin (Neurontin Cap(*)) 300 mg PO TID PRN PRN Reason: PAIN Heparin Sodium (Porcine) (Heparin Vial(*)) 5,000 units SUBCUT Q8HR [facility] Last Admin: 09/21/16 13:34 Dose: 5,000 units Insulin Human Lispro (Humalog*) 0 units SUBCUT AC [facility] PRN Reason: Protocol Last Admin: 09/21/16 13:31 Dose: Not Given Levothyroxine Sodium (Synthroid Tab*) 100 mcg PO 0600 [facility] Last Admin: 09/21/16 05:40 Dose: 100 mcg Levothyroxine Sodium (Synthroid Tab*) 75 mcg PO 0600 [facility] Last Admin: 09/21/16 05:40 Dose: 75 mcg Magnesium Oxide (Magox 400 Tab*) 400 mg PO TID [facility] Last Admin: 09/21/16 13:34 Dose: 400 mg Metoprolol Tartrate (Lopressor Tab*) 12.5 mg PO Q12HR [facility] Last Admin: 09/21/16 08:14 Dose: 12.5 mg Mometasone Furoate/Formoterol Fumar (Dulera 200/5 Mdi*) 2 puff INH BID [facility] Last Admin: 09/21/16 07:49 Dose: 2 puff Morphine Sulfate (Morphine Inj (Syringe)*) 2 mg IV Q2H PRN PRN Reason: PAIN Last Admin: 09/21/16 14:47 Dose: 2 mg Morphine Sulfate (Ms Contin(*)) 30 mg PO Q12H [facility] Multivitamins/Minerals (Theragran/Minerals Tab*) 1 tab PO DAILY [facility] Last Admin: 09/21/16 08:13 Dose: 1 tab Nicotine (Nicotine Inhaler*) 10 mg INH Q2H PRN PRN Reason: CRAVING Omeprazole (Prilosec Cap*) 20 mg PO DAILY [facility] Last Admin: 09/21/16 08:13 Dose: 20 mg Ondansetron HCl (Zofran Inj*) 4 mg IV Q4H PRN PRN Reason: NAUSEA/VOMITING Oxycodone/Acetaminophen (Percocet 5/325 Tab*) 2 tab PO Q4H PRN PRN Reason: Pain 6-10 Oxycodone/Acetaminophen (Percocet 5/325 Tab*) 1 tab PO Q4H PRN PRN Reason: Pain 1-5 Polyethylene Glycol/Electrolytes (Miralax*) 17 gm PO DAILY [facility] Last Admin: 09/21/16 09:35 Dose: 17 gm Pyridoxine HCl (Vitamin B6 Tab*) 25 mg PO DAILY [facility] Last Admin: 09/21/16 11:19 Dose: 25 mg Senna (Senokot Tab*) 1 tab PO BID PRN PRN Reason: CONSTIPATION Last Admin: 09/21/16 05:45 Dose: 1 tab Vital Signs 09/21/16 09/21/16 09/21/16 06:08 07:30 07:51 Temperature 98.5 F Pulse Rate 73 70 Respiratory 16 16 15 Rate Blood Pressure 139/53 (mmHg) O2 Sat by Pulse 92 93 Oximetry Oxygen Devices in Use Now: None Appearance: Elderly obese lady lying in bed in NAD. Eyes: No Scleral Icterus Ears/Nose/Mouth/Throat: Mucous Membranes Moist Neck: Trachea Midline Respiratory: Symmetrical Chest Expansion and Respiratory Effort, Clear to Auscultation Cardiovascular: NL Sounds; No Murmurs; No JVD, RRR Abdominal: NL Sounds; No Tenderness; No Distention Extremities: - - Bilateral LE are KHANH wrapped Neurological: Alert and Oriented x 3, NL Muscle Strength and Tone Lines/Tubes/Other Access: Clean, Dry and Intact Peripheral IV Nutrition: Taking PO's Result Diagrams: 09/19/16 04:27 09/19/16 04:27 Assess/Plan/Problems-Billing Assessment: Mrs. Bonilla is an 81yo F with PMH of AAA s/p repair, COPD, tobacco abuse, type 2 DM, PVD, hypothyroidism, HTN, GERD, DJD, who presented to ED after a fall with c/o right hip pain. - Patient Problems (1) Fall Comment: - Fall vs syncope. - Suspect her antihypertensives may be causing hypotension and syncope. - Continue low dose Metoprolol. - Echocardiogram reviewed. - PT/OT consults. - Fall precautions. (2) Hip pain Comment: - CT pelvis was negative for fracture. - Pain is still severe. - Ortho consult aprreciated - MRI pelvis was negative for fractures, but showed high grade tear of right ilio-psoas muscle and complete tear of the distal right ilio-psoas tendon. - Will increase MS contin, continue oxycodone and PRN Morphine. (3) COPD (chronic obstructive pulmonary disease) Comment: - Appears to be stable at this time. - Continue bronchodilators. (4) Diabetes Comment: - Controlled. - Continue Lispro SS. (5) GERD (gastroesophageal reflux disease) Comment: - Continue Omeprazole. (6) Hypothyroid Comment: - TSH 2.64 - continue Levothyroxine. (7) DVT prophylaxis Comment: - SQ heparin. (8) Full code status
[2016-09-21] MEDS ORDERED: Furosemide IV* 10 MG/ML 2 ML VIAL (20 MG) IV ONE (15:05)
[2016-09-21] MEDS: Morphine TAB Extended Release (*) 30 MG TAB.ER PO SCH (21:29)
[2016-09-22] MEDS: Morphine INJ* 2 MG/ML 1 ML SYRINGE IV PRN ×3 (02:04→08:21)
[2016-09-22] MEDS: Heparin VIAL(*) 5000 UNITS/ML VIAL (FIVE THOUSAND) SUBCUT SCH ×3 (05:32→21:14)
[2016-09-22] MEDS: Levothyroxine TAB* 100 MCG TAB PO SCH (05:32)
[2016-09-22] MEDS: Levothyroxine TAB* 75 MCG TAB PO SCH (05:32)
[2016-09-22 07:50] LABS: BUN/Creatinine Ratio 19.6 (8-20); Calcium 8.4 mg/dL (8.6-10.3); EGFR African American 75.2 (>60); EGFR Non-African American 58.4 (>60); Potassium 4.4 mmol/L (3.5-5.0)
[2016-09-22] MEDS: Mometasone/Formoter 200/5 MDI INH SCH ×2 (08:01→20:22)
[2016-09-22] MEDS: Omeprazole CAP* 20 MG PO SCH (08:19)
[2016-09-22] MEDS: Magnesium Oxide TAB* 400 MG PO SCH ×3 (08:19→20:36)
[2016-09-22] MEDS: Pyridoxine TAB* 50 MG PO SCH (08:19)
[2016-09-22] MEDS: Furosemide TAB* 40 MG PO SCH (08:19)
[2016-09-22] MEDS: Multivitamins/Minerals TAB PO SCH (08:20)
[2016-09-22] MEDS: Morphine TAB Extended Release (*) 30 MG TAB.ER PO SCH ×2 (08:20→20:36)
[2016-09-22] MEDS: Metoprolol Tartrate TAB* 25 MG PO SCH ×2 (08:20→20:35)
[2016-09-22] MEDS: Cholecalciferol TAB* 1000 UNITS PO SCH (08:20)
[2016-09-22] MEDS: Folic Acid TAB* 1 MG PO SCH (08:20)
[2016-09-22] MEDS: Ascorbic Acid TAB* 500 MG PO SCH (08:21)
[2016-09-22] MEDS: Polyethylene Glycol 3350* 17 GM PACKET PO SCH (08:21)
[2016-09-22] MEDS: Aspirin EC Low Dose* 81 MG TAB.EC PO SCH (08:21)
[2016-09-22] MEDS: Insulin LISPRO* 1 UNITS UNIT SUBCUT SCH ×3 (08:55→17:55)
--- NOTE | 2016-09-22 14:34 | PN ---
Subjective Date of Service: 09/22/16 Interval History: HOSPITALIST PROGRESS NOTE Patient seen and examined at bedside. Pain is better controlled today, but she feels tired. Found to have SO2 in the high 80s last night, asymptomatic. Family History: Unchanged from Admission Social History: Unchanged from Admission Past Medical History: Unchanged from Admission Objective Active Medications: Acetaminophen (Tylenol Tab*) 650 mg PO Q4H PRN PRN Reason: FEVER/PAIN Al Hydrox/Mg Hydrox/Simethicone (Maalox Plus*) 30 ml PO Q6H PRN PRN Reason: INDIGESTION Albuterol (Ventolin 2.5 Mg/3 Ml Neb.Lina*) 2.5 mg INH [id number] AWAKE PRN PRN Reason: sob/wheezing Albuterol/Ipratropium (Duoneb (Albuterol 2.5 Mg/Ipratropium 0.5 Mg)) 1 neb INH [id number] AWAKE PRN PRN Reason: sob/wheexing Ascorbic Acid (Vitamin C Tab*) 500 mg PO DAILY [facility] Last Admin: 09/22/16 08:21 Dose: 500 mg Aspirin (Aspirin Ec Low Dose*) 81 mg PO DAILY [facility] Last Admin: 09/22/16 08:21 Dose: 81 mg Cholecalciferol (Vitamin D Tab*) 1,000 units PO DAILY [facility] Last Admin: 09/22/16 08:20 Dose: 1,000 units Device (Nicotine Mouth Piece*) 1 each INH .USE WITH NICOTROL PRN PRN Reason: CRAVING Dextrose (D50w Syringe 50 Ml*) 12.5 gm IV PUSH .FOR FS < 60 - SS PRN PRN Reason: FS < 60 Docusate Sodium (Colace Cap*) 100 mg PO BID PRN PRN Reason: CONSTIPATION Last Admin: 09/21/16 05:46 Dose: 100 mg Folic Acid (Folvite Tab*) 1 mg PO DAILY [facility] Last Admin: 09/22/16 08:20 Dose: 1 mg Furosemide (Lasix Tab*) 40 mg PO DAILY [facility] Last Admin: 09/22/16 08:19 Dose: 40 mg Gabapentin (Neurontin Cap(*)) 300 mg PO TID PRN PRN Reason: PAIN Heparin Sodium (Porcine) (Heparin Vial(*)) 5,000 units SUBCUT Q8HR [facility] Last Admin: 09/22/16 13:09 Dose: 5,000 units Insulin Human Lispro (Humalog*) 0 units SUBCUT AC [facility] PRN Reason: Protocol Last Admin: 09/22/16 13:09 Dose: 2 unit Levothyroxine Sodium (Synthroid Tab*) 100 mcg PO 0600 [facility] Last Admin: 09/22/16 05:32 Dose: 100 mcg Levothyroxine Sodium (Synthroid Tab*) 75 mcg PO 0600 [facility] Last Admin: 09/22/16 05:32 Dose: 75 mcg Magnesium Oxide (Magox 400 Tab*) 400 mg PO TID [facility] Last Admin: 09/22/16 13:09 Dose: 400 mg Metoprolol Tartrate (Lopressor Tab*) 12.5 mg PO Q12HR [facility] Last Admin: 09/22/16 08:20 Dose: 12.5 mg Mometasone Furoate/Formoterol Fumar (Dulera 200/5 Mdi*) 2 puff INH BID [facility] Last Admin: 09/22/16 08:01 Dose: 2 puff Morphine Sulfate (Morphine Inj (Syringe)*) 2 mg IV Q2H PRN PRN Reason: PAIN Last Admin: 09/22/16 08:21 Dose: 2 mg Morphine Sulfate (Ms Contin(*)) 30 mg PO Q12H [facility] Last Admin: 09/22/16 08:20 Dose: 30 mg Multivitamins/Minerals (Theragran/Minerals Tab*) 1 tab PO DAILY [facility] Last Admin: 09/22/16 08:20 Dose: 1 tab Nicotine (Nicotine Inhaler*) 10 mg INH Q2H PRN PRN Reason: CRAVING Omeprazole (Prilosec Cap*) 20 mg PO DAILY [facility] Last Admin: 09/22/16 08:19 Dose: 20 mg Ondansetron HCl (Zofran Inj*) 4 mg IV Q4H PRN PRN Reason: NAUSEA/VOMITING Oxycodone/Acetaminophen (Percocet 5/325 Tab*) 2 tab PO Q4H PRN PRN Reason: Pain 6-10 Oxycodone/Acetaminophen (Percocet 5/325 Tab*) 1 tab PO Q4H PRN PRN Reason: Pain 1-5 Polyethylene Glycol/Electrolytes (Miralax*) 17 gm PO DAILY [facility] Last Admin: 09/22/16 08:21 Dose: 17 gm Pyridoxine HCl (Vitamin B6 Tab*) 25 mg PO DAILY [facility] Last Admin: 09/22/16 08:19 Dose: 25 mg Senna (Senokot Tab*) 1 tab PO BID PRN PRN Reason: CONSTIPATION Last Admin: 09/21/16 05:45 Dose: 1 tab Vital Signs 09/21/16 09/21/16 09/21/16 23:11 23:14 23:15 Temperature 98.3 F Pulse Rate 73 Respiratory 18 Rate Blood Pressure 106/27 122/40 (mmHg) O2 Sat by Pulse 92 90 94 Oximetry Oxygen Devices in Use Now: Nasal Cannula Appearance: Elderly obese lady lying in bed in NAD. Eyes: No Scleral Icterus Ears/Nose/Mouth/Throat: Mucous Membranes Moist Neck: Trachea Midline Respiratory: Symmetrical Chest Expansion and Respiratory Effort, Clear to Auscultation Cardiovascular: RRR - Normal S1 and S2 Abdominal: NL Sounds; No Tenderness; No Distention Extremities: - - KHANH wrapped Neurological: Alert and Oriented x 3, NL Muscle Strength and Tone Lines/Tubes/Other Access: Clean, Dry and Intact Peripheral IV Nutrition: Taking PO's Result Diagrams: 09/19/16 04:27 09/22/16 07:07 Assess/Plan/Problems-Billing Assessment: Mrs. Bonilla is an 81yo F with PMH of AAA s/p repair, COPD, tobacco abuse, type 2 DM, PVD, hypothyroidism, HTN, GERD, DJD, who presented to ED after a fall with c/o right hip pain. - Patient Problems (1) Fall Comment: - Fall vs syncope. - Suspect her antihypertensives were causing hypotension and syncope. - BP is well controlled with low dose Metoprolol only. - Echocardiogram reviewed. - PT/OT consults. - Fall precautions. (2) Hip pain Comment: - CT pelvis was negative for fracture. - Pain is still severe, but less intense than before. - Ortho consult aprreciated - MRI pelvis was negative for fractures, but showed high grade tear of right ilio-psoas muscle and complete tear of the distal right ilio-psoas tendon. - Continue MS contin, oxycodone and PRN Morphine. (3) COPD (chronic obstructive pulmonary disease) Comment: - Appears to be stable at this time. - Continue bronchodilators. - Suspect opiates are the cause of her borderline SO2 - continue to monitor. (4) Diabetes Comment: - Controlled. - Continue Lispro SS. (5) GERD (gastroesophageal reflux disease) Comment: - Continue Omeprazole. (6) Hypothyroid Comment: - TSH 2.64 - continue Levothyroxine. (7) DVT prophylaxis Comment: - SQ heparin. (8) Full code status Status and Disposition: Inpatient. Will need SNF placement for rehab.
[2016-09-23] MEDS: Levothyroxine TAB* 75 MCG TAB PO SCH (05:16)
[2016-09-23] MEDS: Levothyroxine TAB* 100 MCG TAB PO SCH (05:17)
[2016-09-23] MEDS: Heparin VIAL(*) 5000 UNITS/ML VIAL (FIVE THOUSAND) SUBCUT SCH (05:17)
[2016-09-23] MEDS: Morphine INJ* 2 MG/ML 1 ML SYRINGE IV PRN ×2 (07:47→12:17)
[2016-09-23] MEDS: Mometasone/Formoter 200/5 MDI INH SCH (08:21)
[2016-09-23] MEDS: Insulin LISPRO* 1 UNITS UNIT SUBCUT SCH ×2 (08:53→12:46)
[2016-09-23] MEDS ORDERED: Dextrose 50% Syringe 50 ML* 25 GM/50 ML SYRINGE IV PUSH PRN (09:07)
[2016-09-23] MEDS: Polyethylene Glycol 3350* 17 GM PACKET PO SCH (09:38)
[2016-09-23] MEDS: Pyridoxine TAB* 50 MG PO SCH (09:39)
[2016-09-23] MEDS: Metoprolol Tartrate TAB* 25 MG PO SCH (09:39)
[2016-09-23] MEDS: Morphine TAB Extended Release (*) 30 MG TAB.ER PO SCH (09:40)
[2016-09-23] MEDS: Cholecalciferol TAB* 1000 UNITS PO SCH (09:40)
[2016-09-23] MEDS: Multivitamins/Minerals TAB PO SCH (09:40)
[2016-09-23] MEDS: Folic Acid TAB* 1 MG PO SCH (09:40)
[2016-09-23] MEDS: Omeprazole CAP* 20 MG PO SCH (09:40)
[2016-09-23] MEDS: Aspirin EC Low Dose* 81 MG TAB.EC PO SCH (09:42)
[2016-09-23] MEDS: Ascorbic Acid TAB* 500 MG PO SCH (09:42)
[2016-09-23] MEDS: Magnesium Oxide TAB* 400 MG PO SCH (09:42)
[2016-09-23] MEDS: Furosemide TAB* 40 MG PO SCH (09:42)
[2016-09-23 10:29] VITALS: BP 131/46
--- NOTE | 2016-09-23 11:25 | DS ---
DISCHARGE SUMMARY: DATE OF ADMISSION: 09/18/16 DATE OF DISCHARGE: 09/23/16 Transfer to [facility]. PRIMARY CARE PROVIDER: Dr. Partida. DISCHARGE DIAGNOSES: 1. Fall, with suspected hypotension during the episode and subsequent tear of the right iliopsoas muscle and complete tear of the distal right iliopsoas tendon. 2. Hypoxemia, most likely due to atelectasis in patient who is now Maria Elena dependent. 3. Chronic leg lymphedema. During the patient's hospital stay she was placed on Lasix p.o. SECONDARY DIAGNOSES: 1. Lymphedema. 2. Hypertension. 3. Hypothyroidism. 4. Aspirin. 5. Chronic obstructive pulmonary disease, not oxygen dependent previously. 6. History of tobacco use. 7. Diabetes, diet controlled. 8. Peripheral vascular disease. 9. Hypertension. 10. Gastroesophageal reflux disease. 11. History of status post hemicolectomy due to bowel obstruction in the past. 12. Osteoarthritis. MEDICATIONS AT DISCHARGE: Include: 1. Albuterol and Atrovent nebulizers every 4 hours p.r.n. 2. Vitamin C 500 mg daily. 3. Aspirin 81 mg daily. 4. Vitamin D 3000 units daily. 5. Colace 100 mg b.i.d. 6. Folic acid 1 mg daily. 7. Lasix 40 mg daily. 8. Gabapentin 10 mg 3 times a day. 9. Levothyroxine 175 mcg daily. 10. Magnesium oxide 400 mg 3 times a day. 11. Lopressor 12.5 mg every 12 hours. 12. Dulera 200/5, two puffs b.i.d. 13. Morphine extended release 30 mg every 12 hours. 14. Multivitamin 1 tablet daily. 15. Nicotine inhaler 10 mg inhalation every 2 hours p.r.n. 16. Omeprazole 20 mg daily. 17. Percocet 5/325 mg 1 tablet every 4 hours p.r.n. 18. Oxycodone 10 mg every 6 hours p.r.n. 19. MiraLAX 17 g daily. 20. Vitamin B6 25 mg daily. 21. Senokot one tablet b.i.d. p.r.n. 22. Zocor 20 mg daily. LABORATORY DATA AND STUDIES PERFORMED DURING THE HOSPITAL STAY: Included: On 09/22/16, sodium of 138, potassium 4.4, chloride 101, carbon dioxide 29, BUN 18, creatinine 0.92. CBC on 09/19/16 showed white blood cell count of 9.1, hemoglobin of 12.1, hematocrit of 37, platelets of 157. Pelvis MRI obtained on 09/20/16, impression: "No evidence for fracture. High- grade tear of the right iliopsoas muscle and complete tear of the distal right iliopsoas tendon, which is retracted from the lesser tuberosity". Portable chest x-ray on 09/18/16, impression: "No evidence of acute disease". Pelvis CT obtained on 09/18/16, impression: "No evidence of fracture". Transthoracic echocardiogram obtained on 09/19/16 showed EF of 60% to 65%, with slow pattern suggestive of diastolic dysfunction, with right ventricle slightly dilated and right ventricular global systolic function mildly reduced. There was mild mitral regurgitation, moderate tricuspid regurgitation, evidence of moderate pulmonary hypertension. CONSULTATIONS DURING THE HOSPITAL STAY: Included Dr. Bolden from Orthopedic Surgery. HOSPITALIZATION COURSE: Marcy Bonilla is an 81-year-old female with history of chronic lymphedema who presented after a fall, questionable syncope, to our hospital on 09/18/16 complaining of severe right hip pain. Initial x-rays and pelvis CT failed to reveal any fractures. An MRI of the pelvis showed right iliopsoas muscle tear, which was high grade, and a complete tear of the iliopsoas muscle tendon. Dr. Bolden saw the patient in consultation and recommended conservative treatment with physical therapy. During the patient's hospital stay, with increasing use of pain medications and opioids for pain and immobility, the patient developed mild hypoxemia. At discharge, she is at 95% oxygen saturation on 2 L of oxygen nasal cannula. It is most likely due to atelectasis and use of opioids. Otherwise, throughout her hospital stay she did pretty well. She did require increasing doses of narcotics and at this point she is on extended release morphine and Percocet as well as oxycodone on a p.r.n. basis. She is on multiple laxatives to prevent constipation. She underwent physical therapy evaluation and deemed to be a good candidate for rehabilitation. At the time of discharge, she is still Maria Elena dependent. The patient was also placed on Lasix orally at admission due to her chronic lymphedema. She did very well and the lymphedema started resolving. She was also applied Srikanth bandages on a daily basis, which is recommended to be continued at discharge. Due to the patient now being on Lasix, the patient is recommended to have a basic metabolic panel drawn in 4 to 6 days to follow up her electrolytes and renal function. At the time of discharge, the patient is pleasant and cooperative, oriented x3. She still complains of bilateral hip pain that is controlled with p.o. narcotics. She is being discharged to [facility] facility for rehab. PHYSICAL EXAMINATION: At time of discharge, blood pressure of 130/52, heart rate of 85 and regular, respiratory rate 16, oxygen saturation 95% on 2 L of oxygen nasal cannula, temperature of 99.3. General: The patient is a very pleasant 81- year-old female who is in no acute distress. Alert, awake, and oriented x3. HEENT: Head atraumatic, normocephalic. Eyes: Pupils are equal and reactive to light and accommodation. Oropharynx clear. Mucosa moist. Neck : Supple. No JVD. No bruit bilaterally. Cardiovascular: Regular rate and rhythm. No murmur. Respiratory: Clear to auscultation bilaterally. Abdomen: Soft, nontender. Bowel sounds are present in all 4 quadrants. Extremities: There is +2 lymphedema of bilateral feet in the distal lower extremities to the level of bilateral knees. There is no clubbing or cyanosis. Pulses are +2 bilaterally. On evaluation of the skin, no ecchymotic areas or rashes noted. There are no ulcerations on patient's feet noted. Neuro Evaluation: Cranial nerves II through XII are grossly intact. Motor strength is 5/5 bilaterally in bilateral upper extremities. Range of motion in bilateral lower extremities is limited due to pain with movement of bilateral hips, but not impaired. DISCHARGE RECOMMENDATIONS: At discharge, the patient is recommended: 1. To have Srikanth bandages applied to lower extremity edema on a daily basis. 2. Basic metabolic panel to be obtained in 4 to 6 days due to the patient being now on Lasix for lymphedema. 3. Continuation of oxygen at 2 L of nasal cannula to wean to oxygen saturation of above or equal to 92% on room air. Please note that this is a short summary of patient's hospital stay. Please refer to further medical records for details. TIME SPENT: Approximately 40 minutes were spent on the patient's discharge. CC: Dr. Partida; Dr. Bolden; [facility] * [id number]/[facility] #: [id number] SHERRIE
[2016-09-23] MEDS ORDERED: Insulin LISPRO* 1 UNITS UNIT SUBCUT SCH (11:30)
== END 2016-09-23 13:00 | DRG 537 ==
LOC: ED 16:43 → MEDTELE 22:01 → MED 09-20 15:49
PROVIDERS: ADMIT Pediatrics; ATTEND Internal Medicine
DX: S76.011A Strain of muscle, fascia and tendon of right hip, initial encounter (principal); J98.11 Atelectasis; E11.51 Type 2 diabetes mellitus with diabetic peripheral angiopathy without gangrene; I27.2 Other secondary pulmonary hypertension; I95.1 Orthostatic hypotension; S86.811A Strain of other muscle(s) and tendon(s) at lower leg level, right leg, initial encounter; W18.30XA Fall on same level, unspecified, initial encounter; Y92.009 Unspecified place in unspecified non-institutional (private) residence as the place of occurrence of the external cause; R09.02 Hypoxemia; I89.0 Lymphedema, not elsewhere classified; J44.9 Chronic obstructive pulmonary disease, unspecified; I10 Essential (primary) hypertension; E03.9 Hypothyroidism, unspecified; K21.9 Gastro-esophageal reflux disease without esophagitis; M19.90 Unspecified osteoarthritis, unspecified site; F17.210 Nicotine dependence, cigarettes, uncomplicated; I36.1 Nonrheumatic tricuspid (valve) insufficiency; Z79.82 Long term (current) use of aspirin; Z79.899 Other long term (current) drug therapy; Z88.1 Allergy status to other antibiotic agents; Z82.3 Family history of stroke; M48.00 Spinal stenosis, site unspecified; E78.5 Hyperlipidemia, unspecified
CPT/HCPCS: 36415; 71010; 72131; 72192; 72195; 80048; 80053; 81003; 81015; 84443; 84484; 85025; 86140; 87086; 93005; 93306; 94640; 94760; 99406; A9270-GY; J1170; J1644; J1940; J2270

== ENCOUNTER 2018-09-08 15:40 | Emergency (ER) | payer MEDICARE, MEDICAID ==
[2018-09-08 16:03] VITALS: BP 145/83
--- NOTE | 2018-09-08 16:34 | UC ---
Abdominal Pain Female HPI - HPI Summary HPI Summary: 83 yo female with chronic abd pain and constipation alternating with diarrhea She states her current pain level is 3-4/10 which is her baseline Took miralax yesterday and today has had 7 episodes of diarrhea no f/c no n/v - History of Current Complaint Stated Complaint: DIARRHEA Hx Obtained From: Patient Onset/Duration: Gradual Onset, Other - years Timing: Constant Severity Initially: Mild Severity Currently: Mild Pain Intensity: 4 Pain Scale Used: 0-10 Numeric Location: Diffuse Radiates: No Character: Aching, Cramping Aggravating Factor(s): Nothing Alleviating Factor(s): Other: - laying down Associated Signs and Symptoms: Positive: Constipation - alt with diarrhea, Diarrhea. Negative: Diaphoresis, Fever, Cough, Chest Pain, Back Pain Female Torso: 1 - crampy pain Allergies/Adverse Reactions: Allergies Allergy/AdvReac Type Severity Reaction Status Date / Time sulfamethoxazole Allergy Hives Verified 06/09/18 09:52 [From Bactrim] trimethoprim [From Bactrim] Allergy Hives Verified 06/09/18 09:52 PMH/Surg Hx/FS Hx/Imm Hx Endocrine History: Diabetes Cardiovascular History: Hypertension, Other Other Cardiovascular History: AAA repair GI/ History: Other Other GI/ History: ischemic bowel - Surgical History Surgical History: Yes Surgery Procedure, Year, and Place: HYSTERECTOMY;. CHOLECYSTECTOMY;. APPENDECTOMY;. TONSILLECTOMY;. LEFT BREAST (BENIGN);. HIATAL HERNIA REPAIR;. BOWEL RESSECTION;. LEFT CLUB FOOT REPAIR;. AAA REPAIR WITH STENT - 2 ENDURANT-3 ENDURANT II-OK FOR UP TO 720G/CM. OK FOR 1.5 OR 3T PER MRI SAFETY;. CARDIAC STENT PLACED 2012; - Family History Known Family History: Positive: Cardiac Disease, Diabetes - Social History Alcohol Use: None Substance Use Type: None Smoking Status (MU): Light Every Day Tobacco Smoker Type: Cigarettes Amount Used/How Often: 5 cigs per day Length of Time of Smoking/Using Tobacco: ~5 years Have You Smoked in the Last Year: No - Immunization History Most Recent Influenza Vaccination: this flu season Most Recent Tetanus Shot: unknown Most Recent Pneumonia Vaccination: received in past; cannot remember year Review of Systems All Other Systems Reviewed And Are Negative: Yes Constitutional: Positive: Negative Skin: Positive: Negative Eyes: Positive: Negative ENT: Positive: Negative Respiratory: Positive: Negative Cardiovascular: Positive: Negative Gastrointestinal: Positive: Abdominal Pain, Diarrhea Genitourinary: Positive: Negative Motor: Positive: Negative Musculoskeletal: Positive: Arthralgia - knees/ankles/feet Neurological: Positive: Negative Psychological: Positive: Negative Physical Exam Vital Signs: Initial Vital Signs Temp 99.0 F 09/08/18 15:51 Pulse 63 09/08/18 15:51 Resp 18 09/08/18 15:51 BP 145/83 09/08/18 15:51 Pulse Ox 98 09/08/18 15:51 Abd Pain Female Course/Dx - Differential Dx/Diagnosis Provider Diagnosis: Chronic abdominal pain, Diarrhea Discharge - Sign-Out/Discharge Documenting (check all that apply): Patient Departure All imaging exams completed and their final reports reviewed: No Studies - Discharge Plan Condition: Stable Disposition: HOME Patient Education Materials: Nutrition Tips for Relief of Diarrhea (ED) Referrals: Prince Partida MD [Primary Care Provider] - As Soon As Possible Additional Instructions: blood work pending bring in stool for studies - Billing Disposition and Condition Condition: STABLE Disposition: Home
[2018-09-09 11:03] LABS: ABS Basophils 0 10^3/ul (0-0.2); ABS Eosinophils 0.3 10^3/ul (0-0.6); ABS Lymphocytes 1.3 10^3/ul (1.0-4.8); ABS Monocytes 0.5 10^3/ul (0-0.8); ABS Neutrophils 5.4 10^3/ul (1.5-7.7); ABS Nucleated RBC 0 10^3/ul; Eosinophil % 4.2 %; Hematocrit 40 % (33-41); Hemoglobin 13.2 g/dL (12.0-16.0); Lymphocyte % 16.9 %; Mean Corpuscular HGB Conc 33 g/dL (31-36); Mean Corpuscular Hemoglobin 29 pg (27-31); Mean Corpuscular Volume 90 fL (80-97); Mean Platelet Volume 8.3 fL (7.4-10.4); Nucleated Red Blood Cells % 0; Platelet Count 118 10^3/uL (150-450); Red Cell Distribution Width 17 % (10.5-15); White Blood Count 7.5 10^3/uL (3.5-10.8)
[2018-09-09 11:15] LABS: Albumin 3.4 g/dL (3.2-5.2); Albumin/Globulin Ratio 1.1 (1-3); BUN/Creatinine Ratio 16.1 (8-20); Calcium 8.9 mg/dL (8.6-10.3); EGFR African American 52.8 (>60); EGFR Non-African American 43.6 (>60); Potassium 4.5 mmol/L (3.5-5.0); Total Bilirubin 0.3 mg/dL (0.2-1.0); Total Protein 6.4 g/dL (6.4-8.9)
== END 2018-09-08 16:55 | disposition home or self-care (01) ==
LOC: UCEAST 15:40
DX: R10.84 Generalized abdominal pain (principal); R19.7 Diarrhea, unspecified; E11.9 Type 2 diabetes mellitus without complications; I10 Essential (primary) hypertension; Z90.49 Acquired absence of other specified parts of digestive tract; Z90.710 Acquired absence of both cervix and uterus; Z90.89 Acquired absence of other organs; Z95.5 Presence of coronary angioplasty implant and graft; Z88.2 Allergy status to sulfonamides; Z87.891 Personal history of nicotine dependence
CPT/HCPCS: 36415; 80053; 85025; 99211; G0463

== ENCOUNTER 2019-03-09 07:18 | Day surgery (SDC) | payer MEDICARE, MEDICAID ==
--- NOTE | 2019-03-03 12:41 | HP ---
AMENDED REPORT NOW INCLUDES DESIGNATED COSIGNER PREOPERATIVE HISTORY AND PHYSICAL: DATE OF SURGERY/ADMISSION: 03/09/19 DATE OF OFFICE VISIT/ENCOUNTER: 02/18/19 ATTENDING SURGEON: Lupe Cutler MD * (DICTATED BY JODI TAYLOR) PROCEDURE: Left wrist carpal tunnel release and ulnar nerve decompression at left elbow. HISTORY OF PRESENT ILLNESS: This is an 84-year-old female who lives with her daughter. She ambulates using a walker or uses a wheelchair. She is complaining of pain in her bilateral hands, left is worse than right. She also complains of numbness and weakness, this has been ongoing for over 3 years. She sees her primary care doctor, who has been giving her injections into her carpal tunnel every few months. This generally has been helpful, but most recently on the left side, she did not get any relief. She is right hand dominant. She denies injury to either wrist. She has also used wrist braces in the past, which are minimally helpful. Clinically, she has been diagnosed with left wrist carpal tunnel syndrome and ulnar neuropathy at the elbow. The patient has consented to proceed with surgery. We will get clearance from her primary care physician, Dr. Partida prior to proceeding with surgery. PAST MEDICAL HISTORY: 1. Diabetes mellitus type 2. 2. COPD. 3. Peripheral vascular disease. 4. Hypothyroidism. 5. Asthma. 6. Hypertension. PAST SURGICAL HISTORY: 1. Colectomy. 2. AAA repair. 3. Tonsils and adenoids. 4. Cardiac stent placement. 5. Appendectomy. 6. Cholecystectomy. MEDICATIONS: 1. Advair Diskus 250/50 mcg per dose 1 puff b.i.d. 2. Folic acid 5 mg daily. 3. Gabapentin 100 mg daily. 4. Losartan potassium 25 mg daily. 5. Metoprolol tartrate 50 mg twice a day. 6. Ranitidine acid insole reinforcer 75 mg. 7. Spiriva HandiHaler 18 mcg 1 inhalation q.a.m. 8. Synthroid 112 mcg daily. 9. Vitamin D 1000 units daily. 10. Vitamin E 100 units daily. 11. Zocor 20 mg q.h.s. ALLERGIES: BACTRIM causes hives. FAMILY MEDICAL HISTORY: Diabetes. SOCIAL HISTORY: The patient is retired. She lives with her daughter and her dog. She is a current smoker. Reports smoking 5 to 8 cigarettes per day for the past 50 years. She denies recreational rug use and does not drink alcohol. REVIEW OF SYSTEMS: Negative for general, cephalic, cardiovascular, respiratory , GI, , other musculoskeletal, integumentary, endocrine, neurologic, and hematologic symptoms. Infectious Disease: Negative for MRSA, hepatitis C, HIV. PHYSICAL EXAMINATION GENERAL: Well-developed, well-nourished 84-year female in no acute distress. VITAL SIGNS: Height 5 feet 8 inches, weight 172 pounds. Blood pressure 116/68 , pulse rate 72. HEENT: Normocephalic, atraumatic. Pupils are equal, round, and reactive to light and accommodation. Extraocular movements are intact. Throat is clear. NECK: Supple. No palpable lymph nodes. PULMONARY: Lungs are clear to auscultation bilaterally. No wheezes, rales, or rhonchi. CARDIOVASCULAR: Regular rate and rhythm. S1 and S2. No murmurs, rubs, or gallops. No edema. ABDOMEN: Positive bowel sounds. Soft and nontender. NEUROLOGICAL: Alert and oriented x3. Cranial nerves II through XII are intact. MUSCULOSKELETAL: On exam of her bilateral hands, she has severe interosseous hypothenar and thenar wasting on the left hand, severe thenar wasting on the right hand. She can fully flex and extend her finger. She has marked decreased sensation in both hands, on the left involving all of her fingers; on the right the median nerve innervated fingers. Wrist motion is normal. Skin is intact. She has a positive Tinel's sign at the median nerve at both wrists and of the ulnar nerve at the left elbow. ASSESSMENT: Left ulnar neuropathy and left carpal tunnel syndrome. PLAN: The patient is scheduled to undergo a left wrist carpal tunnel release and ulnar nerve decompression at the left elbow with Dr. Cutler on 03/09/19. She will return to the office 10 days postop for followup and suture/staple removal. A prescription for tramadol was e-scribed to the patient's pharmacy for postoperative pain management. We will receive clearance from Dr. Partida prior to proceeding with surgery. JODI TAYLOR [id number]/[facility] #: [id number] SHERRIE
[~2019-03-09 07:18] MED LIST: Buffered Lidocaine 1% SYRIN* 1 ML/SYRINGE INTRADERM ONE; Dexamethasone TAB* 4 MG ONE; Dexamethasone TAB* 4 MG PO ONE; Famotidine IV* 10 MG/ML 2 ML (20 mg) IV ONE; Famotidine IV* 10 MG/ML 2 ML (20 mg) ONE; Lactated Ringers 1000 ML Bag* 1,000 ML IV SCH; Naloxone* 0.4 MG/ML 1 ML VIAL IV PRN; Ondansetron ODT TAB* 4 MG ONE; Ondansetron ODT TAB* 4 MG PO ONE; PROCHLORPERAZINE INJ 5 MG/ML 2 ML VIAL IV PRN; fentaNYL* 50 MCG/ML 2 ML VIAL (100 MCG VIAL) IV PRN; oxyCODONE/Acetamin 5/325 MG* TAB PO PRN
[2019-03-09] MEDS ORDERED: ceFAZolin 2 GM PREMIX in ORs 2 GM/50 ML BAG ONE (07:31)
[2019-03-09] MEDS ORDERED: Midazolam* 1 MG/ML 2 ML VIAL (2 MG) ONE (07:53)
[2019-03-09] MEDS ORDERED: KETAMINE HCL* 50 MG/ML 10 ML VIAL ONE (07:53)
[2019-03-09] MEDS ORDERED: fentaNYL* 50 MCG/ML 2 ML VIAL (100 MCG VIAL) ONE (07:53)
[2019-03-09] MEDS ORDERED: Lidocaine 1% INJ* 10 MG/ML 30 ML SDV ONE (08:49)
[2019-03-09] MEDS ORDERED: Bupivacaine 0.5% SDV PF* 30ML VIAL ONE (08:50)
[2019-03-09] MEDS ORDERED: Ketorolac INJ* 30 MG/ML 1 ML VIAL ONE (09:15)
[2019-03-09] MEDS ORDERED: Lidocaine 2% PF * 5 ML VIAL ONE (09:15)
[2019-03-09] MEDS ORDERED: Propofol* 10 MG/ML 20 ML BTL ONE (09:15)
--- NOTE | 2019-03-09 11:35 | OP ---
DATE OF OPERATION: 03/09/19 - [facility] DATE OF : 33 SURGEON: Lupe Cutler MD. PERIPATOLOGIST: JODI Gomez. ANESTHESIA: Local MAC. PRE-OP DIAGNOSIS: Ulnar nerve compression at the left elbow and carpal tunnel syndrome on the left. POST-OP DIAGNOSIS: Ulnar nerve compression at the left elbow and carpal tunnel syndrome on the left. OPERATIVE PROCEDURE: Left carpal tunnel release and ulnar nerve decompression at the elbow. ESTIMATED BLOOD LOSS: Zero. TOURNIQUET TIME: About 30 minutes. INDICATION FOR PROCEDURE: Marcy is an 84-year-old female who has numbness in her left hand and severe muscle wasting in both the ulnar and median nerve distributions. She presents for left carpal tunnel release and ulnar nerve decompression at the elbow. DESCRIPTION OF PROCEDURE: The patient was brought to the operating room and was given a sedation anesthetic and local infiltration of 10 cc of 1% plain lidocaine in the palm of the left hand and 10 cc of 0.5% Marcaine plain on the medial aspect of her left elbow. The skin of her left upper extremity was prepped and draped in the usual sterile fashion. The upper extremity was exsanguinated and the tourniquet elevated to 250 mmHg. A longitudinal incision was made in the palm in line with the ring finger, we dissected through the subcutaneous tissue down to the transverse carpal ligament. The ligament was divided sharply with a knife and then more proximally with the scissors. The nerve was dissected free from the surrounding tissue and there was an area of significant compression at the mid portion of the ligament. The wound was irrigated and the skin edges reapproximated with 4-0 nylon suture. Next, a curvilinear incision was made centered on the medial aspect of the elbow between the medial epicondyle and the tip of the olecranon process. Dissected bluntly through the subcutaneous tissue down to the ulnar nerve proximal to the elbow. The nerve was carefully dissected out proximally and then through the cubital tunnel and into the FCU fascia. The FCU fascia was very tight. It was completely released, which took a significant amount of compression off of the nerve. There was also significant compression through the cubital tunnel. The medial intermuscular septum was divided. The wound was irrigated and the subcutaneous tissue was closed with 2-0 Polysorb and the skin with skin adeel. The wounds were dressed with Xeroform, 4x4, Webril, and an Srikanth wrap. The patient tolerated the procedure well and was brought to the recovery room in good condition. [id number]/[facility] #: [id number] SHERRIE
[2019-03-09 11:36] VITALS: BP 137/85
== END 2019-03-09 11:02 | disposition home or self-care (01) ==
LOC: OREAST 07:18
PROVIDERS: ATTEND Orthopaedic Surgery
DX: G56.02 Carpal tunnel syndrome, left upper limb (principal); G56.22 Lesion of ulnar nerve, left upper limb; E11.9 Type 2 diabetes mellitus without complications; J44.9 Chronic obstructive pulmonary disease, unspecified; I73.9 Peripheral vascular disease, unspecified; E03.9 Hypothyroidism, unspecified; J45.909 Unspecified asthma, uncomplicated; I10 Essential (primary) hypertension
CPT/HCPCS: A9270-GY; J0690; J1885; J2250; J2704; J3010; J3490; J8540